=== PATIENT | male | born 1930 | race Caucasian/White ===

== ENCOUNTER 2019-07-02 16:47 | Inpatient (IN) | payer OTHER ==
[~2019-07-02] VITALS: Ht 172.7 cm; Wt 83.9 kg
[2019-07-02 16:56] VITALS: BP 161/104
[2019-07-02 17:29] LABS: ABSOLUTE EOSINOPHILS 0.2 thou/uL (0.0-0.7); ABSOLUTE MONOCYTES 0.8 thou/uL (0.0-1.2); ABSOLUTE NEUTROPHILS 4.3 thou/uL (1.6-8.1); BASOPHILS 0.6 %; EOSINOPHILS 2.9 %; HEMATOCRIT 42.3 % (42.0-52.0); HEMOGLOBIN 14.5 gm/dL (14.0-18.0); LYMPHOCYTES 27.1 %; MCH 31.5 pg (26.0-34.0); MCHC 34.2 g/dL (28.0-37.0); MCV 92.3 fL (80.0-100.0); MONOCYTES 11.1 %; MPV 7.6 fl. (7.2-11.1); NUCLEATED RBCS 0 /100WBC; PLATELET COUNT* 157 thou/uL (150-400); POLYS 58.3 %; RBC 4.58 mil/uL (4.50-6.00); RDW-CV 14.4 % (10.5-14.5); WBC 7.3 thou/uL (4.0-11.0)
[2019-07-02 17:32] LABS: PROTIME 10.6 Seconds (9.20-11.50)
[2019-07-02 17:33] LABS: URINE BLOOD TRACE (Negative); URINE CLARITY CLEAR; URINE COLOR DARK YELLOW; URINE GLUCOSE-RANDOM NEGATIVE (Negative); URINE KETONES TRACE (Negative); URINE LEUKOCYTES-REFLEX NEGATIVE (Negative); URINE NITRITE-REFLEX NEGATIVE (Negative); URINE PROTEIN TRACE (Negative); URINE SPECIFIC GRAVITY >= 1.030 (1.005-1.030); URINE UROBILINOGEN 0.2 E.U./dl (0.2-1.0)
[2019-07-02 17:33] LABS: ANION GAP 8 mmol/L (7-16); BUN 23 mg/dL (7-18); CALCIUM 9.1 mg/dL (8.5-10.1); CHLORIDE 104 mmol/L (98-107); CO2 25 mmol/L (21-32); CREATININE 2.2 mg/dL (0.6-1.3); GLUCOSE 112 mg/dL (70-99); POTASSIUM 4.3 mmol/L (3.5-5.1); SODIUM 137 mmol/L (136-145)
[2019-07-02 17:36] LABS: ICTOTEST (BILI CONFIRMATORY) Negative (Negative); URINE BILIRUBIN 1+ (Negative)
[2019-07-02 17:43] LABS: ALBUMIN 3.4 g/dL (3.4-5.0); ALKALINE PHOSPHATASE 64 U/L (46-116); LIPASE 212 U/L (73-393); NT-PRO BRAIN NAT PEPTIDE 73 pg/mL (<300); SGOT 21 U/L (15-37); SGPT 18 U/L (30-65); TOTAL BILIRUBIN 0.5 mg/dL (<0.1-1.0); TOTAL PROTEIN 7.3 g/dL (6.4-8.2); TROPONIN-I LEVEL <0.06 ng/mL (<0.06)
[2019-07-02 20:46] VITALS: BP 162/101
[2019-07-02 21:20] VITALS: BP 155/83
[2019-07-03] VITALS: BP 169/97
[2019-07-03 04:00] VITALS: BP 161/92
[2019-07-03 04:42] LABS: HEMATOCRIT 41.2 % (42.0-52.0); HEMOGLOBIN 13.8 gm/dL (14.0-18.0); MCH 31.2 pg (26.0-34.0); MCHC 33.5 g/dL (28.0-37.0); MCV 93.2 fL (80.0-100.0); MPV 7.6 fl. (7.2-11.1); RBC 4.42 mil/uL (4.50-6.00); RDW-CV 14.4 % (10.5-14.5); WBC 5.7 thou/uL (4.0-11.0)
[2019-07-03 05:00] LABS: ALBUMIN 2.9 g/dL (3.4-5.0); CALCIUM 8.3 mg/dL (8.5-10.1); CREATININE 1.7 mg/dL (0.6-1.3); POTASSIUM 3.9 mmol/L (3.5-5.1); TOTAL BILIRUBIN 0.8 mg/dL (<0.1-1.0); TOTAL PROTEIN 6.1 g/dL (6.4-8.2)
[2019-07-03 08:00] VITALS: BP 147/90
--- NOTE | 2019-07-03 08:21 | NUR ---
PT ADMITTED TO ROOM 218 DURING LEAD FRONT END DEVELOPER 07/02/19; VSS, A+O X3 WITH SOME CONFUSION, ROOM AIR, HIGH FALL RISK-BED ALARM ON. HE IS ABLE TO COMMUNICATE HIS NEEDS TO STAFF WITH MINOR DIFFICULTY; HE IS DYAF-RY-WMPFEKB AND CONFUSED AT TIMES. HE HAS DENIED THE NEED FOR PAIN MEDICATION UP TO O7OO TODAY. NEUROLOGY, PT, OT, ST CONSULTED.
[2019-07-03] MEDS ORDERED: NORVASC5 M1 PO (08:52)
[2019-07-03] MEDS ORDERED: BENAZEPRIL 10 M10 MG PO (08:53)
[2019-07-03] MEDS ORDERED: LIPITOR 20 MG T20 M1 PO (08:54)
[2019-07-03] MEDS ORDERED: SYNTHROID125 MC1 PO (08:54)
--- NOTE | 2019-07-03 09:47 | EKG ---
[place] [address] ELECTROCARDIOGRAM REPORT Name: HOOD SANDS Room: [address] ADM IN .R.#: [id number] Admission: 07/02/19 Attend Phys: Brea Cormier MD Discharge: Date of : [birth year] Report #: [id number] THIS REPORT FOR: //name// [facility] ED Test Date: 2019-07-02 Test Time: 17:06:12 Pat Name: HOOD SANDS Department: Room: [facility] Gender: M Searchlight Operator: EV : 1930 Requested By: Nader Washburn Order Number: [id number] MD: Mauri Oh Measurements Intervals Fine Rate: 69 P: 94 VT: 165 QRS: -11 QRSD: 96 T: 135 QT: 554 QTc: 594 Interpretive Statements Sinus rhythm Inferior infarct, 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
[2019-07-03] MEDS ORDERED: ASPIR 8181 MG PO (11:07)
[2019-07-03] MEDS ORDERED: COLACE100 MG PO (11:09)
[2019-07-03] MEDS ORDERED: LUMIGAN2.5 M1 OPHTHALMIC (11:09)
[2019-07-03 11:30] VITALS: BP 168/91
--- NOTE | 2019-07-03 11:32 | NUR ---
ASSUMED CARE OF PT AT 0730. PT RESTING IN BED. DAUGHTER AT BEDSIDE. PT A&0X2-3, FORGETFUL AND CONFUSED AT TIMES. PT TRACING SR ON THE ROCKET SCIENTIST. ON RA SAT UPPER 90'S. PT DENIES ANY PAIN OR SHORTNESS OF BREATH AT THIS TIME. IVF. PT UP WITH 1 ASSIST WALKER TO BATHROOM. HOME MEDICATIONS RECONCILED. PT GOAL FOR TODAY IS NEURO CONSULT, PT, OT AND ST EVAL AND TREAT AND RENAL ULTRASOUND. AM ASSESSMENT CHARTED. MEDICATIONS PER DEC. PT REPOSITIONS SELF WITH REMINDERS. HOURLY ROUNDING OBSERVED. BED IN LOW POSITION. CALL LIGHT WITHIN REACH. WILL CONTINUE PLAN OF CARE.
--- NOTE | 2019-07-03 16:02 | NUR ---
Pt is A&O. Resides at home with his , is currently out of town. Dtr in room at bedside. Pt is normally independent. Pt has a walker and cane at home, states that he rarely uses either, but uses the cane the most out of the two. Pt has a ton of family that assist him as needed. No hx of or SNF. Discussed possible need for some rehab prior to returning home, Pt and dtr voiced understanding. Therapies to eval. Following.
[2019-07-03 16:09] VITALS: BP 134/87
--- NOTE | 2019-07-03 16:52 | NUR ---
NEURO HERE TO SEE PT. ORDERS RECEIVED FOR MRI HEAD, MRI CAROTID AND MRI CRICLE OF [place]. REFER TO RESULTS. RESULTS CALLED TO DR VERDIN- ORDERS RECEIVED FOR PLAVIX 75 MG PO DAILY AND ASPIRIN 81 MG PO DAILY. PT ALSO HAD RENAL ULTRASOUND TODAY- REFER TO RESULTS. PT UP WITH 1 ASSIST TO BATHROOM- LEFT SIDED WEAKNESS NOTED AND LEFT FACIAL DROOP NOTED. 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 PT DENIES ANY PAIN OR SHROTNESS OF BREATH THROUGHOUT AFTERNOON. 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 PT WORKED WITH PT TODAY-TOLERATED WELL. MEDICATIONS PER DEC. PT REPOSITIONS SELF WITH REMINDERS. HOURLY ROUNDING OBSERVED. BED IN LOW POSITION. CALL LIGHT WITHIN REACH. WILL CONTINUE PLAN OF CARE.
[2019-07-03 20:44] VITALS: BP 143/88
[2019-07-04 00:35] VITALS: BP 174/98
[2019-07-04 03:36] VITALS: BP 158/102
[2019-07-04 04:00] VITALS: BP 137/98
--- NOTE | 2019-07-04 04:00 | NUR ---
PT DEVELOPED RIGHT NOSTRIL EPISTAXIS AT APPOXIMATELY 0300; ORIGIN IS NOT KNOWN, PT STATES THAT HE HAS NOSE BLEEDS FROM "TIME TO TIME". APPLIED PRESSURE AND USED ICE PACK TO TRY AND STOP BLEEDING BUT BLEEDING PERSISITED. PT SWALLOWING BLOOD AND NOT SPITTING IT OUT. GOT SUCTION IN THE ROOM TO HELP FACILITATE REMOVAL OF BLOOD FROM HIS MOUTH; TOLERATED WELL BY PT. PT DID VOMIT UP BLOOD AT JUST BEFORE 0400. CALLED MD AND RECEIVED ORDER TO HAVE ER MD PLACE A RHINO-ROCKET TO HELP STOP THE BLEEDING. CONTINUING TO KEEP PRESSURE AN ICE PACK ON HIS NOSE UNTIL MD CAN COME UP FROM ER. WILL PUT IN MORNING CBC RECHECK TO MAKE SURE HIS H/H HAS NOT DROPPED TOO MUCH.
[2019-07-04 05:16] LABS: HEMATOCRIT 40.6 % (42.0-52.0); HEMOGLOBIN 13.5 gm/dL (14.0-18.0); MCH 31.1 pg (26.0-34.0); MCHC 33.4 g/dL (28.0-37.0); MCV 93.3 fL (80.0-100.0); MPV 8.2 fl. (7.2-11.1); RBC 4.35 mil/uL (4.50-6.00); RDW-CV 14.2 % (10.5-14.5); WBC 7.3 thou/uL (4.0-11.0)
[2019-07-04 05:33] LABS: APTT 28.9 Seconds (25.0-31.3); PROTIME 10.7 Seconds (9.20-11.50)
[2019-07-04 05:37] LABS: CALCIUM 8.3 mg/dL (8.5-10.1); CREATININE 1.5 mg/dL (0.6-1.3); MAGNESIUM 1.8 mg/dL (1.8-2.4)
[2019-07-04 08:00] VITALS: BP 136/91
[2019-07-04 09:48] LABS: HEMATOCRIT 39.7 % (42.0-52.0); HEMOGLOBIN 13.3 gm/dL (14.0-18.0); MCH 31.4 pg (26.0-34.0); MCHC 33.6 g/dL (28.0-37.0); MCV 93.5 fL (80.0-100.0); MPV 7.8 fl. (7.2-11.1); RBC 4.25 mil/uL (4.50-6.00); RDW-CV 14.1 % (10.5-14.5); WBC 12.5 thou/uL (4.0-11.0)
[2019-07-04 10:16] LABS: CHOLESTEROL 178 mg/dL (<200); HDL CHOLESTEROL 35 mg/dL (>40); LDL CHOLESTEROL 123 mg/dL (<100); TC:HDL 5.1 Ratio (Not establshd); TRIGLYCERIDE 104 mg/dL (<150); VLDL 21 mg/dL (<40)
[2019-07-04 10:18] LABS: SERUM ASSESSMENT Clear
--- NOTE | 2019-07-04 10:20 | NUR ---
PT IS ABLE TO COMMUNICATE HIS NEEDS TO STAFF WITH SOME DIFFICULTY; HE IS FORGETFUL AND CONFUSED FREQUENTLY. HE HAS DENIED THE NEED FOR PAIN MEDICATION UP TILL 0700 TODAY. PT PULLED OUT RHINO-ROCKET AT AROUND O645; NOSE DID NOT RESUME BLEEDING AT THAT TIME. DAY SHIFT RN INFORMED OF THE NIGHT'S EVENTS AND TOLD TO WATCH HIM FOR BLEEDING.
--- NOTE | 2019-07-04 11:30 | NUR ---
ASSUMED CARE OF PATIENT THIS AM AT 0730. PATIENT IS ALERT AND ORIENTED X 1, CONFUSED AND IMPULSIVE. HE HAS BEEN FREQUENTLY TRYING TO GET OUT OF BED THIS AM. NO FURTHER EPITAXIS NOTED THIS AM. TELE SHOWS NSR. PATIENT TAKING PO MEDICATIONS WITHOUT DIFFICULTY. PATIENT REORIENTED TO PLACE AND TIME NEEDED. HE HAS BEEN ASSISTED WITH ADLS THROUGHOUT THE DAY. NO FALLS OR INJURY. KIM IS NOW AT THE BEDSIDE. WILL CONTINUE TO MONITOR.
[2019-07-04 11:43] VITALS: BP 137/79
--- NOTE | 2019-07-04 14:03 | 2DMMODE ---
[place] [address] 2 D/M-MODE ECHOCARDIOGRAM Name: HOOD SANDS Room: [address] IN R#: [id number] Admission: 07/02/19 Attend Phys: Brea Cormier, Discharge: Date of : [birth year] Date of Service: 07/04/19 1403 Report #: [id number] THIS REPORT FOR: //name// APPROVED REPORT Study performed: 07/04/2019 11:41:37 EXAM: Comprehensive 2D, Doppler, and color-flow Echocardiogram Patient Location: In-Patient Room #: 218 Status: routine BSA: 1.97 HR: 114 bpm BP: 136/91 mmHg Rhythm: NSR Other Information Study Quality: Fair Indications CVA/TIA Echo Enhancing Agent Indication: Rule out Shunt Agent(s) / Amount(s) Used: Agitated Saline 10 cc 2D Dimensions IVSd: 14.35 (7-11mm) LVOT Diam: 20.46 (18-24mm) LVDd: 40.22 mm PWd: 12.24 (7-11mm) Ascending Ao: 31.88 (22-36mm) LVDs: 29.96 (25-40mm) Aortic Root: 38.75 mm Volumes Left Atrial Volume (Systole) LA ESV Index: 21.70 mL/m2 Aortic Valve AoV Peak Angelo.: 1.43 m/s AO Peak Gr.: 8.18 mmHg LVOT Max P.76 mmHg AO Mean Gr.: 4.67 mmHg LVOT Mean P.47 mmHg LVOT Max V: 1.30 m/s AO V2 VTI: 16.85 cm LVOT Mean V: 0.69 m/s NAN (VTI): 2.93 cm2 LVOT V1 VTI: 15.03 [place] [address] 2 D/M-MODE ECHOCARDIOGRAM Name: HOOD SANDS Room: [address] IN .R.#: [id number] Admission: 07/02/19 Attend Phys: Brea Cormier, Discharge: Date of : [birth year] Date of Service: 07/04/19 1403 Report #: [id number] Mitral Valve E/A Ratio: 0.60 MV Decel. Time: 215.48 ms MV E Max Angelo.: 0.55 m/s MV PHT: 62.49 ms MVA (PHT): 3.52 cm2 TDI E/Lateral E': 6.11 E/Medial E': 6.88 Medial E' Angelo.: 0.08 m/s Lateral E' Angelo.: 0.09 m/s Pulmonary Valve PV Peak Angelo.: 0.99 m/s PV Peak Gr.: 3.92 mmHg Left Ventricle The left ventricle is normal size. There is normal LV segmental wall motion. Mild concentric left ventricular hypertrophy. Left ventricular systolic function is normal. The left ventricular ejection fraction is within the normal range. LVEF is 65-70%. Grade I - abnormal relaxation pattern. Right Ventricle The right ventricle is normal size. The right ventricular systolic function is normal. Atria The left atrium size is normal. Interatrial septum is intact without evidence of ASD or PFO. The right atrium size is normal. Aortic Valve Mild aortic valve sclerosis. No aortic regurgitation is present. There is no aortic valvular stenosis. Mitral Valve The mitral valve is normal in structure. There is no mitral valve regurgitation noted. No evidence of mitral valve stenosis. Tricuspid Valve The tricuspid valve is normal in structure. Unable to assess PA pressure. Trace tricuspid regurgitation. Pulmonic Valve Pulmonic valve is not well visualized. There is no pulmonic [place] [address] 2 D/M-MODE ECHOCARDIOGRAM Name: HOOD SANDS Room: [address] IN [facility]#: [id number] Admission: 07/02/19 Attend Phys: Brea Cormier, Discharge: Date of : [birth year] Date of Service: 07/04/19 1403 Report #: [id number] Great Vessels The aortic root is normal in size. The inferior vena cava is not well visualized. Pericardium There is no pericardial effusion. <Conclusion> Mild concentric left ventricular hypertrophy. LVEF is 65-70%. Mild aortic valve sclerosis. Interatrial septum is intact without evidence of ASD or PFO. <ELECTRONICALLY SIGNED> By: Mauri Oh MD, [facility] 07/04/19 1403 140 140 Mauri Oh MD, FACC /INF
[2019-07-04 16:45] VITALS: BP 110/75
[2019-07-04 17:24] LABS: HEMATOCRIT 36.8 % (42.0-52.0); HEMOGLOBIN 12.6 gm/dL (14.0-18.0); MCH 31.5 pg (26.0-34.0); MCHC 34.1 g/dL (28.0-37.0); MCV 92.3 fL (80.0-100.0); NUCLEATED RBCS 0 /100WBC; PLATELET COUNT* 170 thou/uL (150-400); RBC 3.98 mil/uL (4.50-6.00); RDW-CV 14.3 % (10.5-14.5)
[2019-07-04 18:08] LABS: ABSOLUTE LYMPHOCYTES 0.7 thou/uL (0.8-5.3); ABSOLUTE MONOCYTES 0.7 thou/uL (0.0-1.2); ABSOLUTE NEUTROPHILS 15.6 thou/uL (1.6-8.1); PLATELET ESTIMATE ADEQUATE
[2019-07-05] VITALS: BP 127/82
[2019-07-05 02:06] LABS: GLYCOHEMOGLOBIN (HGB A1C) 5.5 % (4.8-5.6)
[2019-07-05 04:00] VITALS: BP 132/75
[2019-07-05 05:07] LABS: HEMATOCRIT 33.6 % (42.0-52.0); HEMOGLOBIN 11.4 gm/dL (14.0-18.0); MCH 31.5 pg (26.0-34.0); MCHC 34.1 g/dL (28.0-37.0); MCV 92.3 fL (80.0-100.0); MPV 8.1 fl. (7.2-11.1); RBC 3.64 mil/uL (4.50-6.00); RDW-CV 14.4 % (10.5-14.5); WBC 12.1 thou/uL (4.0-11.0)
[2019-07-05 05:21] LABS: ALBUMIN 2.6 g/dL (3.4-5.0); CALCIUM 8.4 mg/dL (8.5-10.1); CREATININE 1.6 mg/dL (0.6-1.3); MAGNESIUM 1.8 mg/dL (1.8-2.4); POTASSIUM 3.9 mmol/L (3.5-5.1); TOTAL BILIRUBIN 0.9 mg/dL (<0.1-1.0); TOTAL PROTEIN 5.9 g/dL (6.4-8.2)
[2019-07-05 07:11] VITALS: BP 127/81
[2019-07-05 11:48] VITALS: BP 115/69
[2019-07-05 16:00] VITALS: BP 128/77
--- NOTE | 2019-07-05 16:32 | NUR ---
ASSESSMENT COMPLETE. PT ALERT AND ORIENTED TO SELF. PT HAS SLURRED SPEECH. LEFT SIDE IS FLACCID. FACIAL DROOP NOTED. PT HAS FAMILY AT BEDSIDE. WAITING FOR TO RETURN FROM VACATION TODAY OR TOMORROW TO HELP DETERMINE PLAN. NEURO ROUNDED AND UNDERSTANDS AND WILL RE-EVALUATE PLAN WITH HERE. GI CONSULT COMPLETED. SPEECH EVAL DONE TODAY AND THEY RECOMMEND MEDS WITH APPLESAUCE AND MECHANICAL GOUND DIET. PT IS NSR ON TELE MONITOR. PT IS ON ROOM AIR, VSS. Q2 TURN. ACCU CHECK. SEE ASSESSMENT AND VITALS FOR OTHER DETAILS. CALL LIGHT WITHIN REACH. WILL CONTINUE PLAN OF CARE
[2019-07-05 21:00] VITALS: BP 136/82
[2019-07-06] VITALS: BP 145/85
[2019-07-06 04:00] VITALS: BP 145/84
[2019-07-06 07:30] VITALS: BP 139/87
--- NOTE | 2019-07-06 07:34 | NUR ---
VSS. NIH=9. L sided hemiplegia. Takes meds well with applesauce. Turned q2h. Incontinent of urine. Will continue to monitor.
[2019-07-06 14:04] VITALS: BP 129/75
--- NOTE | 2019-07-06 17:41 | NUR ---
ASSESSMENT DOCUMENTED. MEDS GIVEN PER E-MAR WITH APPLESAUCE. FAMILY REMAINED AT BEDSIDE. IV PATENT, FLUIDS INFUSING. NO REPORTS OF PAIN THIS SHIFT. NIH DOCUMENTED. WILL CONTINUE WITH PLAN OF CARE.
[2019-07-06 18:36] VITALS: BP 159/91
[2019-07-06 19:35] VITALS: BP 145/92
[2019-07-07] VITALS (7 sets, daily range): BP systolic 126–150; BP diastolic 61–93
--- NOTE | 2019-07-07 04:48 | NUR ---
[facility] CARE OF PT AT 1900. PT IS ALERT AND ORIENTED. VSS. FLACID ON THE LEFT SIDE. PT IS IN SINUS RYTHM ON THE TELEMETRY. PT IS RESTING COMFORTABLY IN BED. RESPIRATIONS ARE EVEN AND NONLABORED. WILL CONTINUE TO MONITOR PT,
[2019-07-07 04:56] LABS: HEMATOCRIT 31.3 % (42.0-52.0); HEMOGLOBIN 10.7 gm/dL (14.0-18.0); MCH 31.9 pg (26.0-34.0); MCHC 34.1 g/dL (28.0-37.0); MCV 93.6 fL (80.0-100.0); MPV 8.1 fl. (7.2-11.1); RBC 3.34 mil/uL (4.50-6.00); RDW-CV 14.6 % (10.5-14.5); WBC 6.9 thou/uL (4.0-11.0)
[2019-07-07 05:05] LABS: CALCIUM 8.3 mg/dL (8.5-10.1); CREATININE 1.3 mg/dL (0.6-1.3); MAGNESIUM 1.6 mg/dL (1.8-2.4); POTASSIUM 3.5 mmol/L (3.5-5.1)
--- NOTE | 2019-07-07 10:47 | NUR ---
PT A/O. NIH 8 (NO CHANGE FROM PREVIOUS SHIFT). TELE TRACKING SR AND ALL VSS ON ROOM AIR. DENIES CP SOA. DAUGHTERS AT BEDSIDE THIS AM. PT AND FAMILY LOOKING FORWARD TO DC TO REHAB SOON. EDUCATED ON SAFETY AND PLAN OF CARE. PLEASE SEE ASSESSMENT FOR ADDITIONAL INFORMATION. WILL CONT TO MONITOR
--- NOTE | 2019-07-07 13:42 | NUR ---
Spoke with clinical rehab specialist, PT/OT are supposed to re-eval Pt since he extended. Continued to await insurance auth
[2019-07-08] VITALS: BP 140/98
--- NOTE | 2019-07-08 03:44 | NUR ---
ASSUMED CARE OF PT AT 1900. PT IS ALERT AND ORIENTED. VSS. PT NIH IS 8. PT IS ON ROOM AIR. NO COMPLAINTSOF PAIN. PT IS A Q2 TURN. PT IS SLEEPING QUIETLY IN BED. RESPIRATIONS ARE EVEN AND NONLABORED. WILL CONTINUE TO MONITOR PT.
[2019-07-08 04:00] VITALS: BP 135/91
[2019-07-08 07:23] VITALS: BP 147/87
--- NOTE | 2019-07-08 11:20 | NUR ---
Per rehabilitation engineer, continue to await insurance auth for acute rehab.
--- NOTE | 2019-07-08 13:24 | NUR ---
Insurance auth received for Pt to dc to acute rehab today, awaiting room assignment and dc time. Updated nurse and Pt's family in room
[2019-07-08 14:00] VITALS: BP 147/87
[2019-07-08] MEDS ORDERED: PLAVIX 75 MG TA75 M1 PO (14:41)
[2019-07-08] MEDS ORDERED: ENOXAPARIN30 MG/0.1 SUBQ (14:48)
--- NOTE | 2019-07-08 15:32 | NUR ---
ASSUMED PT CARE AT 0800. ASSESSMENT COMPLETED CHARTED. ABLE TO MAKE SOME NEEDS KNOWN. NIH 9. LEFT SIDE FLACID, RIGHT SIDE OF FACE IS DROOPING FROM BELLS PALSY. UP WITH MAX ASSIST TO CHAIR FOR LUNCH. NEEDS ASSIST EATING. FAMILY AT BEDSIDE. PT WAS DISCHARGED TO REHAB UPSTAIRS AT 1525. PAPERWORK WENT OVER WITH FAMILY AND PT. GAVE REPORT TO REHAB NURSE. PT FAMILY TOOK ALL BELONGINGS WITH THEM TO BRING UPSTAIRS.
== END 2019-07-08 15:45 | DRG 64 ==
LOC: M.ERS 16:47 → M.2W 18:27 → M.TBA-ER 18:27 → M.2W 21:00
PROVIDERS: Emergency Medicine; Family Medicine; ADMIT Internal Medicine
DX: I63.9 Cerebral infarction, unspecified (principal); N17.0 Acute kidney failure with tubular necrosis; K92.0 Hematemesis; G81.94 Hemiplegia, unspecified affecting left nondominant side; G51.0 Bell's palsy; N40.0 Benign prostatic hyperplasia without lower urinary tract symptoms; F03.90 Unspecified dementia, unspecified severity, without behavioral disturbance, psychotic disturbance, mood disturbance, and anxiety; I65.22 Occlusion and stenosis of left carotid artery; R04.0 Epistaxis; N28.1 Cyst of kidney, acquired; R47.1 Dysarthria and anarthria; I10 Essential (primary) hypertension

== ENCOUNTER 2019-07-08 14:02 | Inpatient (IN) | payer OTHER ==
[~2019-07-08] VITALS: Ht 175.3 cm; Wt 80.3 kg
[~2019-07-08 14:02] MED LIST: ASPIR 8181 MG PO; BENAZEPRIL 10 M10 MG PO; COLACE100 MG PO; LIPITOR 20 MG T20 M1 PO; LUMIGAN2.5 M1 OPHTHALMIC; NORVASC5 M1 PO; SYNTHROID125 MC1 PO
[2019-07-08] MEDS ORDERED: PLAVIX 75 MG TA75 M1 PO (14:41)
[2019-07-08] MEDS ORDERED: ENOXAPARIN30 MG/0.1 SUBQ (14:48)
[2019-07-08 16:12] VITALS: BP 109/80
--- NOTE | 2019-07-08 17:01 | NUR ---
PT ADMITTED TO 324 PER BED FROM TELE. PT ALERT AND ORIENTATED TO SELF AND ROOM AND CONTROLS. DAUGHTER NADEGE HERE TO ASSIST . PT HAS SLURRED SPEECH BUT ABLE TO MAKE NEEDS KNOWN. PT HAS FLACCID LT ARM AND LEG,RT.LEG WITH MILD MOVEMENT AND ABLE TO USE RT. ARM. SOFT TOUCH CALL LIGHT GIVEN TO PT AND CLIPPED TO GOWN. PT HAS HAD LARGE INC WITH BLADDER SCAN 50.PT HAS LARGE BRUSE TO LT HIP FROM FALL AT HOME.DAUGHTER STATES PT TALKS BETTER WITH TEETH IN WHICH ARE IN ROOM.FAMILY ORIENTATED TO REHAB.
[2019-07-08 19:45] VITALS: BP 133/84
--- NOTE | 2019-07-09 01:33 | NUR ---
ASSUMED CARE @ 1924-07/08-SUNDAY.AWAKE IN BED W/ HOB UP.LUE UP ON A PILLOW. EDEMA-LEFT FINGERS & LEFT HAND.FLACCID-LUE & LEFT LE.MILD SPEECH SLURRING. LEFT EYE PARTLY CLOSED.HAS MOIST,PROD.COUGH OCCASIONAL BUT SWALLOWS SPUTUM. AT 2300-AWAKE & INC.LARGE.LIQUID BM.STOOLS ON RIGHT HAND.PARTIAL BED BATH GIVEN & RIGHT HAND SOAKED.RIGHT FINGERNAILS CLEANED.COMPLETE BED LINENS CHANGED.ON HOURLY ROUNDS.SEE POSITION CHANGE CHARTING.
[2019-07-09 04:16] LABS: HEMATOCRIT 31.5 % (42.0-52.0); HEMOGLOBIN 10.8 gm/dL (14.0-18.0); MCHC 34.4 g/dL (28.0-37.0); MCV 92.9 fL (80.0-100.0); MPV 7.8 fl. (7.2-11.1); RBC 3.39 mil/uL (4.50-6.00); RDW-CV 14.6 % (10.5-14.5); WBC 7.9 thou/uL (4.0-11.0)
[2019-07-09 04:33] LABS: CALCIUM 8.4 mg/dL (8.5-10.1); CREATININE 1.4 mg/dL (0.6-1.3); POTASSIUM 3.2 mmol/L (3.5-5.1)
--- NOTE | 2019-07-09 05:43 | NUR ---
PHOTO TAKEN-PINK AREA COCCYX CLEFT @ 0225.ORAL SWABS GIVEN W/ ICE H20 X4.TOOK 4 SIPS ORANGE JUICE & 2 SIPS ICE H20 @ 0400.SEE PAIN MANAGEMENT @ 0450. LAST VOID PER PATIENT @ 2300 W/ INC LARGE BM.BLADDER SCAN @ 0500-558 ML. RUNNING H20 & COLD COMPRESS ON BLADDER AREA APPLIED TO STIMULATE VOIDING @ 0510.URINAL PLACED BETWEEN THIGHS.REFUSED HS SNACKS.SLEEPING EARLY SINCE 2029. AWAKE @ 2300,0400 & 0500.INC URINE X1.INC STOOLS X2.BOWEL ACCIDENTS X2.
--- NOTE | 2019-07-09 06:52 | NUR ---
unable to void @ 0630.DR MACK CALLED & GOT ORDER TO ST.CATH Q 6 HOURS IF UNABLE TO VOID & IF BLADDER SCAN ABOVE [address].CATH @ 0645 & OBTAINED 225 ML URINE.
[2019-07-09 07:55] VITALS: BP 149/84
--- NOTE | 2019-07-09 09:31 | NUR ---
Nutrition: Pt admitted to rehab with Lt weakness. ALCIEDS is resolved. H/o [place] Palsy, BPH. Alb 2.6, prealb 14.4. Wt stable at 182#. +BM. Soft/fiber restricted diet. Low risk.
[2019-07-09 14:22] LABS: CALCIUM 9.1 mg/dL (8.5-10.1); CREATININE 1.8 mg/dL (0.6-1.3); MAGNESIUM 1.9 mg/dL (1.8-2.4); POTASSIUM 3.3 mmol/L (3.5-5.1)
--- NOTE | 2019-07-09 16:25 | NUR ---
SW and Dr Read met with pt to review team conference summary and plan for pt to remain on rehab unit at least another week with plan for team to reassess pt length of stay during team conference next Monday 07/16. Pt okay with plan and was able to communicate understanding of continuing to work with therapies. Initial assessment for inpt rehab: Pt lives at home with and family support. Pt was previously independent and drove. Pt has RW, cane and no hx of HH or SNF. SW to continue to follow to assist with safe dc planning.
[2019-07-09 19:40] VITALS: BP 128/72
--- NOTE | 2019-07-09 19:40 | NUR ---
ASSISTED WITH PLACING URINAL. UNABLE TO VOID. HAD A BOWEL SMEAR. BRYON CARE GIVEN. REPLACED LOW POTASSIUM WITH ELECTROLYTE PROTOCOL. HAS LABS ORDERED FOR THE MORNING. TOOK POTASSIUM PILLS CUT IN HALF WITH APPLESAUCE FOLLOWED WITH SIPS OF NECTAR THICKENED APPLE JUICE. LEFT SIDE FLACCID. PLACE PILLOW UNDER LEFT ARM AND REPOSITION PATIENT WITH ASSIST OF 2 TO THE LEFT SIDE. SOFT CALL LIGHT ATTACHED TO T-SHIRT. BEDRAILS UP X 4 AND BED ALARM ON FOR PATIENT'S SAFETY.
[2019-07-09 23:54] LABS: URINE BILIRUBIN NEGATIVE (Negative); URINE BLOOD 2+ (Negative); URINE CLARITY CLEAR; URINE COLOR DARK YELLOW; URINE GLUCOSE-RANDOM NEGATIVE (Negative); URINE KETONES TRACE (Negative); URINE LEUKOCYTES-REFLEX TRACE (Negative); URINE NITRITE-REFLEX NEGATIVE (Negative); URINE PROTEIN TRACE (Negative)
[2019-07-10 00:08] LABS: SQUAMOUS 0-3 Few /LPF (0-3); TRANSITIONAL EPITHEL CELL 0-3 Few /LPF (None Seen); WBC CLUMPS Few (None Seen)
[2019-07-10 00:09] LABS: BACTERIA-REFLEX >30 Many /HPF (None Seen); CRYSTALS None Seen /LPF (None Seen); FINE GRANULAR CASTS 0-3 Few /LPF (None Seen); HYALINE CASTS 0-3 Few /LPF (None Seen); MUCUS 4-6 Moderate strn/LPF (None Seen)
[2019-07-10 04:10] LABS: HEMATOCRIT 31.4 % (42.0-52.0); HEMOGLOBIN 10.7 gm/dL (14.0-18.0); MCHC 34.1 g/dL (28.0-37.0); MCV 94.1 fL (80.0-100.0); MPV 7.9 fl. (7.2-11.1); RBC 3.34 mil/uL (4.50-6.00); WBC 7.3 thou/uL (4.0-11.0)
[2019-07-10 04:27] LABS: CALCIUM 8.5 mg/dL (8.5-10.1); CREATININE 1.6 mg/dL (0.6-1.3); POTASSIUM 3.7 mmol/L (3.5-5.1)
--- NOTE | 2019-07-10 05:59 | NUR ---
VOIDED ON BEDPAN DURING THE NIGHT. VOIDED PER URINAL THIS MORNING BUT BLADDER SCAN SHOWED 367ML RESIDUAL. STRAIGHT CATH DONE AT 0530 AND 250 ML JOANIE URINE OBTAINED. INCONTINENT THIS MORNING OF BLACK LIQUID STOOL. BRYON CARE GIVEN. ASSISTED WITH REPOSITIONING THROUGHOUT THE NIGHT. HOURLY ROUNDING IN PROGRESS.
[2019-07-10 07:40] VITALS: BP 140/87
--- NOTE | 2019-07-10 17:48 | NUR ---
NURSE CALLED INTO ROOM BY THERAPY. PER TRACEY PT HAD CHANGE IN STATUS. UPON ENTERING ROOM, PT IN WHEELCHAIR AND ABLE TO ANSWER QUESTIONS. PER THERAPY PATIENT "BLACKED OUT" AND WAS NOT TALKING. PT ABLE TO ANSWER QUESTIONS AND HOLD CONVERSATION. PT ASSISTED TO BED. ATTEMPTED NIH. PT ABLE TO STATE YEAR, MONTH AND AGE. PT ABLE TO RAISE RIGHT ARM WITH NO DRIFT. ATTEMPTED NIH, HOWEVER, PT HAS RESIDUAL LEFT SIDED WEAKNESS FROM PREVIOUS STROKE. VSS. SYSTOLIC BP 110. TEMP 97.7. OXYGEN >94%. BLOOD GLUCOSE 140. PT TALKING. PT STATES HE DOES NOT RECALL BLACKING OUT. DR MCLEAN. WILL CONTINUE TO MONITOR.
[2019-07-10 20:00] VITALS: BP 121/85
[2019-07-11 04:09] LABS: HEMATOCRIT 30.4 % (42.0-52.0); HEMOGLOBIN 10.6 gm/dL (14.0-18.0); MCH 32.4 pg (26.0-34.0); MCHC 34.9 g/dL (28.0-37.0); MCV 92.9 fL (80.0-100.0); MPV 7.7 fl. (7.2-11.1); RBC 3.27 mil/uL (4.50-6.00); RDW-CV 14.8 % (10.5-14.5); WBC 5.1 thou/uL (4.0-11.0)
[2019-07-11 04:16] LABS: CREATININE 1.6 mg/dL (0.6-1.3); POTASSIUM 3.1 mmol/L (3.5-5.1)
--- NOTE | 2019-07-11 05:12 | NUR ---
ASSUMED PT CARE AT 1930. PT ALERT AND ORIENTED, POLITE AND COOPERATIVE WITH CARES. PT INCONTINENT X1. BRYON CARE GIVEN. NO STOOL THIS SHIFT. LEFT SIDE FLACCID. 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 PT REPOSITIONED Q2 WITH PILLOW UNDER LEFT ARM. TAKES PILLS WITH APPLESAUCE. ON NECTAR THICK LIQUIDS. LARGE BRUISE ON LEFT HIP. PT USES CALL LIGHT APPROPRIATELY. CALL LIGHT AND FREQUENTLY USED ITEMS IN REACH. HOURLY ROUNDING IN PROGRESS, WILL CONTINUE TO MONITOR.
[2019-07-11 08:58] VITALS: BP 93/67
--- NOTE | 2019-07-11 18:06 | NUR ---
AM ASSESSMENT AND VITAL SIGNS COMPLETED DOCUMENTED. PT IS PLEASANT AND COOPERATIVE, MOTIVATED TO MAKE PROGRESS. LEFT HIP XRAY DONE SECONDARY TO C/O PAIN, NO FRACTURE PRESENT. PT IS MAX ASSIST WITH TRANSFERS AND BED MOBILITY. PT IS ALSO INCONTINENT OF BOWEL AND BLADDER. POTASSIUM REPLACEMENT PER PROTOCOL. FALL PRECAUTIONS AND HOURLY ROUNDING CONTINUE.
[2019-07-11 20:00] VITALS: BP 125/69
--- NOTE | 2019-07-11 21:11 | NUR ---
INITAL ASSESMENT COMPLETED AT 1999. PT PLEASANT AND COOPERATIVE, DENIED PAIN OR DISCOMFORT AT THAT TIME. HS MEDS DISPENSED ORDERED PER EMAR. CALL LIGHT IN REACH, PT DEMONSTRATES PROPER USE.
[2019-07-12 08:00] VITALS: BP 145/101
--- NOTE | 2019-07-12 15:50 | NUR ---
ASSUMED CARE AT 0730. ALERT ORIENTED PLEASANT COOPERATIVE. HX OF CVA L SIDE WEAKNESS. TRANSFERS WITH 1 ASSIST G BELT SLIDING BOARD FROM BED TO W/C FOR BREAKFAST. LEANS HEAVILY TO L SIDE DUE TO CVA. L ARM IN ARM TRAY ON W/C. DENIES PAIN DID C/O TIREDNESS AFTER BEING UP IN W/C BUT COMPLETED ALL THERAPIES THEN RESTED IN BED. TURNED REPOSITIONED ON LEFT SIDE. HAS HAD SEVERAL VISITORS TODAY. FEEDS SELF WITH SET UP DENTURES. ON NECTAR LIQUIDS AND MECHANICAL ALTERED CHOPPED DIET MEDS WHOLE IN APPLESAUCE. USES CALL LIGHT APPROPRIATELY FOR ASSIST. VOIDED PER URINAL X 1 STAFF EMPTIED.
[2019-07-12 18:45] VITALS: BP 89/60
[2019-07-12 19:51] VITALS: BP 131/79
--- NOTE | 2019-07-13 00:45 | NUR ---
ASSUMED CARE @ 1929-07/12-SAT.APPEARS SLEEPING IN BED W/ HOB FLAT.PUT HOB UP @ 1929.BED ALARM PUT ON ALSO @ 1929.LUE UP ON A PILLOW W/ HEELS OFF BED @ 1929.LAST VOIDING PER PATIENT WAS 1200 NOON.BLADDER SCAN @ 2000-214 ML.EDEMA- LEFT HAND & LEFT FINGERS.AT 2200--WANTS TO VOID.URINAL PLACED X 15 MINUTES.BUT NO VOID.FEELS DISCOMFORT.BLADDER SCAN @ 2199-198 ML.TOOK 120 ML NECTAR THICK APPLE JUICE @ 2214.HAS BEEN 10 HOURS W/OUT VOID SO-STRAIGHT CATH @ 2249 & OBTAINED 250 ML URINE.BP @ 0800-145/101.RE-CHECKED @ 1845-89/60.BP @ 1950- 131/79.ON HOURLY ROUNDS.DOCUMENTATION WRITER DOING ODD HOUR ROUNDS.
--- NOTE | 2019-07-13 05:18 | NUR ---
SLEEPING SINCE 1930.AWAKE @ 1999,2199 & 0200-07/13-SUNDAY.REFUSED HS SNACK. DRANK ALL 1/2 LEFT OF NECTAR THICK APPLE JUICE @ 0200.AT 0430-VOIDED 100 ML PER URINAL.BLADDER SCAN FOR PVR-133 ML.PHOTO OF COCCYX TAKEN @ 444.
[2019-07-13 08:12] VITALS: BP 171/94
--- NOTE | 2019-07-13 16:35 | NUR ---
ASSUMED CARE AT 0730. ALERT ORIENTED PLEASANT COOPERATIVE. HX OF CVA L SIDE FLACCID WEAK UPPER LOWER EXTREMITY. TRANSFERS WITH 2 ASSIST G BELT FROM BED TO W/C. L ARM IN ARM TRAY ON W/C. FEEDS SELF WITH SET UP APPETITE FAIRLY GOOD. TAKES MEDS WHOLE ONE AT A TIME IN APPLESAUCE. ON NECTAR LIQUIDS AND MECHANICALLY ALTERED CHOPPED DIET. HAS BEEN UP IN W/C AND RECLINER FOR A GOOD PART OF THE DAY. HAS HAD MANY VISITORS ALSO. TURNED AND REPOSITIONED IN BED. NO SPONTANEOUS VOIDS BLADDER SCAN WAS > 300 BUT CATH WAS 200CCS JOANIE URINE. PT. DID STATE URGE TO VOID BUT COULDNT PER URINAL SOME DISCOMFORT STATED BLADDER REGION PER PT.
[2019-07-13 17:08] VITALS: BP 138/88
--- NOTE | 2019-07-13 17:11 | NUR ---
PT. WANTS TO REST FOR 1 HR. HE HAS HAD MANY VISITORS TODAY, NITHYAWNICHOLAS SPEECH IS SLURRED BUT UNDERSTANDABLE RESTING RT. SIDE.
[2019-07-13 19:00] VITALS: BP 145/80
--- NOTE | 2019-07-14 00:43 | NUR ---
ASSUMED CARE @ 1922-07/13-SUN.AWAKE IN BED W/ HOB UP.HEELS OFF BED @ 1922.BED ALARM PUT ON @ 1922.DENTURES CLEANED & SOAKED @ 1924 W/ EFFERDENT TAB.DR. MACK CAME @ 2099 & GAVE VERBAL ORDER TO ST.CATH Q 4 HOURS IF BLADDER SCAN ABOVE 250 ML.BLADDER SCAN @ 2119-374 ML.STRAIGHT CATH @ 2124 & OBTAINED 150 ML URINE.BRYON CARE DONE.CALLED @ -SUNDAY & WANTS TO GET UP.INFORMED OF TIME.ON HOURLY ROUNDS.SHOWCASE MAKER DOING ODD HOUR ROUNDS.
--- NOTE | 2019-07-14 05:46 | NUR ---
AWAKE MOST OF TIME DURING NIGHT.USED SERVICE SPECIALIST @ 0200,0330 & 0530 TO CALL NURSE.WANTS TO GET UP @ THESE TIMES TO GO TO THERAPHY.RE-ORIENTED TO TIMES. SLEEPING SINCE 2200.TOOK ALL NECTAR THICK APPLE JUICE HS SNACK.ORAL SWABS X3 GIVEN.MOISTURE BARRIER CREAM APPLIED TO PINK GROINS & COCCYX CLEFT X1. BLADDER SCAN @ 0200-76 ML ONLY.VOIDED 50 ML PER URINAL @ 0330 W/ SPILL. BRYON CARE DONE.
--- NOTE | 2019-07-14 06:44 | NUR ---
BLADDER SCAN @ 0630-288 ML.STRAIGHT CATH @ 0635 & OBTAINED 175 ML URINE. TOLERATED PROCEDURE WELL.BRYON CARE DONE @ 0640.
[2019-07-14 08:18] VITALS: BP 145/91
--- NOTE | 2019-07-14 19:36 | NUR ---
PT. HASNT VOIDED THIS SHIFT BLADDER SCAN AT 1150 WAS 62CCS. DENIES DISCOMFORT PO INTAKE IS POOR THICKENED LIQUIDS. BLADDER SCAN AT 1700 WAS 237CC. NO VOIDS YET. RESTED IN BED AFTER BETWEEN THERAPIES.
--- NOTE | 2019-07-14 20:01 | NUR ---
FOUND INCONTINENT OF URINE INTO BRIEF. UNDETERMINED AMOUNT. BLADDER SCANNED THREE TIMES WITH 0 ML RESIDUAL. SKIN CARE DONE, MOISTURE BARRIER APPLIED.
[2019-07-14 20:22] VITALS: BP 117/71
--- NOTE | 2019-07-14 23:09 | NUR ---
ASSUMED CARE AT 1930. SEE PRIOR NOTE ABOUT INCONTINENCE AND BLADDER SCANNING THEN. NO PILLS TO TAKE, ONLY EYE GTT AND LOVENOX WITH HS MEDS. TURNING Q2H, POSITIONED WITH PILLOWS, BUT PATIENT TURNS HIMSELF OFF OF IT OFTEN. FOUND WITH HOB VERY ELEVATED, C/O NEEDING TO VOID. ATTEMPTED URINAL. UNABLE TO VOID. BLADDER SCANNED SHOWED 213 ML. RETURNED TO HAVING HOB LOWERED AND HE IS ATTEMPTING SLEEP. PATIENT ABLE TO USE CALL LITE AND THIS NURSE OBSERVED HIM USING IT ONCE WITH THE CORDED CALL LITE AND ANOTHER TIME TO THE ONE ATTACHED TO THE RAIL. SKIN CARE DONE TO COCCYX AREA, MOISTURE BARRIER APPLIED. LT ARM ON PILLOW. HOURLY ROUNDS CONTINUE. BED ALARM ON. CALL LITE IN REACH.
--- NOTE | 2019-07-15 05:28 | NUR ---
SLEPT OFF AND ON THROUGH THE NIGHT. TURNS SELF IN BED. NO C/O PAIN. DID C/O THAT HE COULDN'T VOID. ATTEMPTED URINAL WITHOUT SUCCESS. BLADDER SCANNED AT 0500, GOT 543 ML. STRAIGHT CATH DONE WITH STERILE TECHNIQUE. OBTAINED 300 ML OF CONCENTRATED, BLOOD TINGED URINE, SOME BROWN SEDIMENT NOTED. TOLERATED WELL. HOURLY ROUNDS CONTINUE. BED ALARM ON. CALL LITE IN REACH, AND PATIENT USES THE CALL LITE WELL.
[2019-07-15 08:20] VITALS: BP 93/54
--- NOTE | 2019-07-15 18:47 | NUR ---
1800 BLADDER SCAN SHOWED 137ML, NO STRAIGHT CATH NEEDED.
[2019-07-15 19:30] VITALS: BP 105/72
--- NOTE | 2019-07-15 19:55 | NUR ---
SITTING UP IN BED. ASSISTED WITH SETTING TV ON CHANNEL WITH [employer] Parking[employer]ALL GAME. DENIES DISCOMFORT. CALL LIGHT AND TV REMOTE WITHIN REACH. TOOK MEDICATION WHOLE WITH APPLESAUCE FOLLOWED WITH NECTAR THICKENED APPLE JUICE.
--- NOTE | 2019-07-16 05:25 | NUR ---
RESTED ON/OFF. PAIN MED GIVEN FOR COMPLAINT OF HEADACHE WITH RELIEF. HOURLY ROUNDING IN PROGRESS.
[2019-07-16 07:55] VITALS: BP 96/60
[2019-07-16 13:26] LABS: ABSOLUTE EOSINOPHILS 0.1 thou/uL (0.0-0.7); ABSOLUTE LYMPHOCYTES 0.9 thou/uL (0.8-5.3); ABSOLUTE MONOCYTES 0.4 thou/uL (0.0-1.2); ABSOLUTE NEUTROPHILS 5.5 thou/uL (1.6-8.1); BASOPHILS 0.5 %; EOSINOPHILS 1.7 %; HEMATOCRIT 36.6 % (42.0-52.0); HEMOGLOBIN 12.2 gm/dL (14.0-18.0); LYMPHOCYTES 13.3 %; MCH 31.7 pg (26.0-34.0); MCHC 33.4 g/dL (28.0-37.0); MCV 94.8 fL (80.0-100.0); MONOCYTES 5.2 %; MPV 7.5 fl. (7.2-11.1); NUCLEATED RBCS 0 /100WBC; PLATELET COUNT* 364 thou/uL (150-400); POLYS 79.3 %; RBC 3.86 mil/uL (4.50-6.00)
[2019-07-16 13:30] LABS: CALCIUM 9.5 mg/dL (8.5-10.1); CREATININE 2.3 mg/dL (0.6-1.3); POTASSIUM 4.2 mmol/L (3.5-5.1)
--- NOTE | 2019-07-16 13:54 | NUR ---
NUtrition f/u: no wt since admit. Intake avg 50%, prior nsg note of poor intake. Will add Maigc Cup daily. RD will continue to follow weekly; need current wt.
--- NOTE | 2019-07-16 16:34 | NUR ---
NERISSA and Dr Read met with pt to review team conference summary and plan for pt to remain on rehab unit to continue therapies and team will reassess pt length of stay during team conference next Monday 07/23. Pt in agreement with plan. SW to continue to follow to assist with safe dc planning.
--- NOTE | 2019-07-16 18:42 | NUR ---
AM ASSESSMENT AND VITAL SIGNS COMPLETED DOCUMENTED. PT PARTICIPATED WITH ALL THERAPIES. SPEECH THERAPIST CHANGED LIQUIDS TO HONEY CONSISTENCY, PT NEEDS TO DRINK A LOT MORE. PT WAS INCONTINENT OF URINE ONE TIME AND WAS STRAIGHT CATHED ONCE FOR 150 ML. PRE CATH SCAN SHOWED 343. FALL PRECAUTIONS AND HOURLY ROUNDING CONTINUE.
[2019-07-16 20:00] VITALS: BP 128/72
--- NOTE | 2019-07-16 22:53 | NUR ---
ASSUMED CARE AT 1930. PATIENT RESTING IN BED. CHANGES POSITIONS IN BED. LT ARM FLACCID, LT LEG MOVES SOME. NOT MANY "SPASMS" NOTED COMPARED TO SUNDAY NIGHT. HAS NOT VOIDED, NOR HAS HE C/O FEELING LIKE HE HAS TO. OFFERED PAIN MEDS, HE DECLINED. OTHERWISE HAS NO HS PILLS. DRANK 4 OZ HONEY THICKENED APPLE JUICE WITHOUT PROBLEM. MOISTURE BARRIER TO BUTTOCKS. HOURLY ROUNDS CONTINUE. BED ALARM ON. CALL LITE IN REACH.
--- NOTE | 2019-07-17 01:45 | NUR ---
AWAKE. HAD SMALL INCONTINENT BM, SKIN CARE DONE. MOISTURE BARRIER APPLIED. BLADDER SCANNED, ONLY 278 OBTAINED PER SCANNER. 4 MORE OZ OF HONEY THICKENED APPLE JUICE CONSUMED. TURNED TO SIDE, LT ARM UP ON PILLOW. NO C/O PAIN. USING MANUAL POLANCO, HAVING PROBLEMS USING CALL LITE AT THIS TIME. HOURLY ROUNDS CONTINUE. BED ALARM ON. CALL LITE IN REACH.
--- NOTE | 2019-07-17 05:12 | NUR ---
SLEPT MOST OF THE SHIFT. USES MANUAL POLANCO AT TIMES. UNABLE TO VOID EARLIER PER URINAL. REFUSED THIRD OFFER OF HONEY THICK LIQUIDS (APPLE JUICE) BUT DID TAKE TWO THROUGH SHIFT. ASSISTED WITH TURNS. LT ARM ON PILLOW. HEELS OFF BED. NO C/O PAIN. HOURLY ROUNDS CONTINUE. BED ALARM ON. CALL LITE AND MANUAL POLANCO IN REACH.
--- NOTE | 2019-07-17 05:49 | NUR ---
STRAIGHT CATHED, HAD NOT VOIDED AND STILL UNABLE TO. 483 ML SCANNED, OBTAINED 200 ML OF JOANIE URINE, NO SEDIMENT NOTED. TOLERATED WELL. NO C/O PAIN.
[2019-07-17 08:00] VITALS: BP 125/70
[2019-07-17 19:39] LABS: URINE BILIRUBIN NEGATIVE (Negative); URINE BLOOD 1+ (Negative); URINE CLARITY CLEAR; URINE COLOR YELLOW; URINE GLUCOSE-RANDOM NEGATIVE (Negative); URINE KETONES NEGATIVE (Negative); URINE LEUKOCYTES NEGATIVE (Negative); URINE NITRITE NEGATIVE (Negative); URINE PROTEIN TRACE (Negative); URINE SPECIFIC GRAVITY >= 1.030 (1.005-1.030); URINE UROBILINOGEN 0.2 E.U./dl (0.2-1.0)
[2019-07-17 19:51] LABS: BACTERIA 1-9 Few /HPF (None Seen); CASTS None Seen /LPF (None Seen); CRYSTALS None Seen /LPF (None Seen); MUCUS 0-3 Light strn/LPF (None Seen); SQUAMOUS 0-3 Few /LPF (0-3); URINE RBC 0-2 Rare /HPF (0-2); URINE WBC 0-5 Rare /HPF (0-5)
[2019-07-17 20:14] VITALS: BP 104/64
--- NOTE | 2019-07-18 05:41 | NUR ---
ASSUMED CARES AT 1920. ALERT AND ORIENTED. CVA WITH LEFT HEMIPARESIS. TAKES PILLS WHOLE IN APPLESAUCE WITH HONEY THICK LIQUIDS. ENCOURAGED FLUIDS. MAX ASSIST X 2 PERSON GAIT BELT. STAND AND PIVOT. STILL VERY WEAK WITH TRANSFERS. WEARS PULLUPS. HAD STOOL ACCIDENTS THROUGHOUT THE NIGHT. NURSING DID ALL CARES. PT DID NOT VOID. ONLY REQUIRED TO BE STRAIGHT CATHED X 1 AND HAD 250 CC OUTPUT. THIS AM, PT C/O LEFT SHOULDER PAIN. TYLENOL WAS GIVEN. SLEPT SOME. CALL LIGHT IN REACH. BED ALARM ON.
[2019-07-18 08:14] VITALS: BP 137/68
[2019-07-18 16:28] LABS: CALCIUM 9.1 mg/dL (8.5-10.1); CREATININE 1.9 mg/dL (0.6-1.3); POTASSIUM 3.8 mmol/L (3.5-5.1)
--- NOTE | 2019-07-18 19:11 | NUR ---
PATIENT AWAKE IN BED. ALL SAFETY MEASURES MAINTAINED. DISCUSSED OUTPUT AND INTAKE WITH DR. ROACH AND STUDENTS. IV FLUIDS INFUSING PER MAR. ENCOURAGED PO INTAKE PER DIET ORDERS THROUGHOUT SHIFT. PATIENT DENIES FURTHER NEEDS AT THIS TIME.
[2019-07-18 20:00] VITALS: BP 101/59
--- NOTE | 2019-07-19 07:35 | NUR ---
ASSUMED CARES AT 1920. ALERT AND ORIENTED. PLEASANT. DENIED ANY NEED FOR PAIN MEDS. IV INITIALLY STARTED TO RIGHT AC BUT KEPT KINKING WHEN PT FLEXED ARM DURING THE NIGHT AND SO ANOTHER IV WAS STARTED. IV NS NOW RUNNING AT 100 CC/HR TO RIGHT HAND. PT DID HAVE STOOL INCONTINENCE. BARRIER CREAM APPLIED TO COCCYX. PT ABLE TO VOID INTO URINAL X 2. NO STRAIGHT CATHS NEEDED THIS SHIFT. TURN ONTO SIDE DURING THE NIGHT. CALL LIGHT IN REACH AND BED ALARM ON.
[2019-07-19 08:00] VITALS: BP 139/88
[2019-07-19 10:15] LABS: CALCIUM 8.7 mg/dL (8.5-10.1); CREATININE 1.7 mg/dL (0.6-1.3); POTASSIUM 3.5 mmol/L (3.5-5.1)
--- NOTE | 2019-07-19 17:16 | NUR ---
AM ASSESSMENT AND VITAL SIGNS AND COMPLETED DOCUMENTED. PT HAS BEEN A/O THIS SHIFT, SPEECH HAS BEEN LESS DIFFICULT TO UNDERSTAND. PT HAS BEEN VOIDING, USING A URINAL WITH NO STRAIGHT CATH'S NEEDED. IV FLUID WILL BE DC'D AT THE COMPLETION OF THIS LITER. FALL PRECAUTIONS AND HOURLY ROUNDING CONTINUE.
[2019-07-19 19:25] VITALS: BP 102/66
--- NOTE | 2019-07-19 19:25 | NUR ---
RESTING QUIETY. BED IN CHAIR POSITION. IV FLUIDS INFUSING. TOOK MEDICATIONS WHOLE WITH APPLESAUCE FOLLOWED WITH HONEY THICKENED APPLE JUICE. TYLENOL GIVEN FOR COMPLAIN OF GENERALIZED ABD DISCOMFORT. CALL LIGHT WITHIN REACH.
[2019-07-20 04:31] LABS: CALCIUM 8.3 mg/dL (8.5-10.1); CREATININE 1.4 mg/dL (0.6-1.3)
--- NOTE | 2019-07-20 05:05 | NUR ---
NO FURTHER COMPLAINT OF PAIN. RESTED POORLY. KEEPS TAKING OFF HIS GOWN. INCONTINENT X 5 THUS FAR. REQUIRED A TOTAL BED CHANGE X ONE DUE TO INCONTIENCE. THE ONE TIME HE ATTEMPTED TO USE THE URINAL A LARGE AMOUNT OF URINE WAS FOUND ON THE FLOOR. A FEW TIMES FOUND PILLOWS ON THE FLOOR. HOURLY ROUNDING IN PROGRESS.
[2019-07-20 07:50] VITALS: BP 122/66
[2019-07-20 20:00] VITALS: BP 138/79
--- NOTE | 2019-07-21 06:28 | NUR ---
PATIENT SLEPT WELL DURING THIS SHIFT. PT UNABLE TO USE CALL LIGHT BUT CALLS OUT FOR ASSISTANCE. PT USES URINAL AT TIMES TO VOID AND ALSO IS INCONTINENT OF URINE. PT TURNED Q2H PER PROTOCAL AND IS NOT ABLE TO ASSIST WITH TURNS. PT'S LINENS CHANGED DURING THIS SHIFT. FREQUENTLY USED ITEMS AND CALL LIGHT WITHIN REACH. SIDERAILS UPX3 AND BED ALARM ON. WILL CONTINUE TO MONITOR.
[2019-07-21 08:00] VITALS: BP 95/67
--- NOTE | 2019-07-21 14:04 | NUR ---
ASSUMED CARE AT 0730. ALERT ORIENTED PLEASANT COOPERATIVE. HX OF CVA L SIDE WEAKNESS.TRANSFERS WITH 2 PERSON ASSISTANCE G BELT FROM W/C TO STAND AND ALSO TO GET FROM RECLINER TO W/C. WEARING SLING L ARM FLACCID. PARTICIPATING IN THERAPIES. FEEDS SELF WITH SET UP MECHANICAL ALTERED WITH HONEY LIQUIDS. TAKES MEDS WITH APPLESAUCE WHOLE 1 AT A TIME WITHOUT DIFFICULTY. DOES COUGH AT TIMES WITH THICKENED LIQUIDS. PTS. SON AND FEMALE VISITOR HERE AT NOON TIME. POSITIONED RT. SIDE IN BED AFTER THERAPIES COMPLETED.
[2019-07-21 16:15] VITALS: BP 121/75
--- NOTE | 2019-07-21 18:53 | NUR ---
PT. HAS DRANK HONEY THICK LIQUIDS.WHEN ENCOURAGED TO BUT APPETITE FAIR TO GOOD VOIDED 300CCS CLOUDY JOANIE URINE PER URINAL AT 0800. BLADDER SCAN AT 1655 WAS 379CCS NO DISCOMFORT VOICED. URINAL PLACED X 2. NO FURTHER VOIDS HAD MOD SOFT BM IN PULLUPS AND ALSO LOOSE BM ON INCONTINENT PAD MOISTURE BARRIER APPLIED TO BUTTOCKS AFTER HYGEINE.
[2019-07-21 19:38] VITALS: BP 118/80
--- NOTE | 2019-07-22 05:48 | NUR ---
ASSUMED CARES AT 1920. ALERT AND ORIENTED. PLEASANT. LEFT HEMIPARESIS. EXPRESSIVE APHASIA. DENIED ANY NEED FOR PAIN MEDS. ENCOURAGED HONEY THICK LIQUIDS. PT INCONTINENT OF URINE AT MIDNIGHT. UNABLE TO VOID AT 0530. BLADDER SCANNED SHOWED 450 CC. STRAIGHT CATHED WITH 400 CC OUTPUT. PT DID HAVE LIQUID STOOL INCONTINENCE X 2. THIS AM PT ALSO C/O STOMACH DISCOMFORT AFTER BM. CALL LIGHT IN REACH AND BED ALARM ON.
[2019-07-22 07:27] VITALS: BP 126/82
[2019-07-22 10:15] VITALS: BP 99/60
--- NOTE | 2019-07-22 11:29 | NUR ---
ASSUMED CARE AT 0730. ALERT ORIENTED PLEASANT COOPERATIVE. HX OF CVA L SIDE WEAKNESS. PT. WORKING WITH O.TAnnie THIS A.M. FOR ADLS. TRANSFERS WITH 2 ASSIST G BELT DUE TO L SIDE WEAKNESS FLACCIDITY UPPER EXTREMITY. PT. SITTING UP IN RECLINER AT BEDSIDE FEEDING SELF FLUIDS ENCOURAGED ON HONEY LIQUIDS. NEEDS ENCOURAGEMENT TO DRINK FLUIDS. DENIES PAIN TAKING MEDS WHOLE IN APPLESAUCE.
--- NOTE | 2019-07-22 11:36 | NUR ---
PT. WAS FOUND LYING ON L SIDE ON FLOOR AT 1015 HE HAD CALL LIGHT IN HIS HAND HAD BEEN IN RECLINER AFTER O.T. AND BREAKFAST. NO OPEN AREAS NOTED. HAD BEEN IN RECLINER AFTER O.T. AND BREAKFAST. PT. HAS FLACCID UPPER EXTREMITY AND WEAK LOWER EXTREMITY.
[2019-07-22 11:46] VITALS: BP 99/60
[2019-07-22 12:49] VITALS: BP 114/70
--- NOTE | 2019-07-22 17:08 | NUR ---
PT. HAS HAD NO SPONTANEOUS VOIDS SCAN [id number] SCAN AT 1430 REQUESTED URINAL AT 1620 NO VOID STRAIGHT CATH FOR 200 CCS JOANIE URINE AT 1640. IN RECLINER AT BEDSIDE ELEVATED FOOT REST CHAIR ALARM ON FOR PT. SAFETY.
[2019-07-22 19:00] VITALS: BP 112/70
--- NOTE | 2019-07-23 06:15 | NUR ---
ASSUMED CARE AT 1920. ALERT AND ORIENTED. PLEASANT. CONTINUES TO HAVE LOOSE COUGH. PER DR LARSEN, ENCOURAGE USE OF INCENTIVE SPIROMETRY AND ORDER FOR MUCINEX BID X 7 DAYS. PT TOOK PILLS WHOLE IN APPLESAUCE WITH HONEY THICK LIQUIDS. PUSHED FLUIDS. MELATONIN GIVEN BUT PT STILL RESTLESS MOST OF THE NIGHT. PT SQUIRMING IN BED AND PULLING OFF COVERS. WAS THEN REPOSITIONED AND TURNED THROUGHOUT THE NIGHT. AT 0600, PT HAD URINARY INCONTINENCE BUT STILL HAD PVR OF 400-500 CC. PT STRAIGHT CATHED AND HAD 400 CC OUT OF DARK YELLOW URINE. PT RESTING IN BED. CALL LIGHT IN REACH AND BED ALARM ON.
[2019-07-23 08:00] VITALS: BP 131/79
[2019-07-23 13:14] LABS: CREATININE 1.5 mg/dL (0.6-1.3); POTASSIUM 3.3 mmol/L (3.5-5.1)
--- NOTE | 2019-07-23 14:38 | NUR ---
NERISSA and Dr Read met with pt to review team conference summary and plan to reassess pt length of stay during team conference next Monday 07/30. Pt okay with plan. SW spoke with pt dtr Gabby to review summary and discuss planning and also left a message with pt dtr Alta; Gabby mentioned pt Amy would be visiting pt at hospital today around 3 pm and SW can discuss in more detail with pt . Also, pt phone number is [phone]. SW to continue to follow to assist with safe dc planning.
[2019-07-23 20:04] VITALS: BP 115/67
--- NOTE | 2019-07-23 20:05 | NUR ---
INCONTINENT OF URINE. BRYON CARE GIVEN. MOISTURE BARRIER APPLIED.ASSISTED WITH REPOSITIONING TO THE LEFT WITH ASSIST OF TWO. SLIGHT REDNESS ON BUTTOCKS NOTED. TOOK MEDICATIONS WHOLE ONE AT A TIME FOLLOWED WITH SIPS OF HONEY THICKENED APPLE JUICE. TAKES EXTRA TIME TO SWALLOW PILLS. CALL LIGHT WITHIN REACH. DENIES NEED FOR PAIN MEDICINE.
--- NOTE | 2019-07-24 06:06 | NUR ---
RESTED ON/OFF. COUGHED PERIODICALLY. COUGHS DECREASED AFTER ABOUT MIDNIGHT. ASSISTED WITH REPOSITIONING SIDE TO SIDE THROUGHOUT THE NIGHT. HOURLY ROUNDING IN PROGRESS.
[2019-07-24 08:30] VITALS: BP 103/67
--- NOTE | 2019-07-24 10:37 | NUR ---
ASSUMED PT CARE AT 0730, FULL ASSESMENT DONE CHARTED. PT A/O X4, UP WITH OT TO RECLINER THIS AM. ATE MOST OF BREAKFAST, POTASSIUM GIVEN IN THICKENED APPLEJUICE. PT TOELRATED WELL. PTS VSS, DENIES PAIN. CHIAR ALARM ON, PT APPEARS TIRED AFTER THERAPY THIS AM. WILL CONTINUE WITH PLAN OF CARE.
--- NOTE | 2019-07-24 18:37 | NUR ---
PT REMAINS FREE OF FALLS, PROGRESSING TOWARD GOALS. PT COULD NOT VOID THIS SHIFT, BLADDER SCAN SHOWED 660 1200, PT STRAIT CATHED WITH 600CC OUT. PT STILL UNABLE TO VOID THIS EVENING AND WAS BLADDER SCANNED WITH 70 CC IN BLADDER. PT PROVIDED WITH URINAL. PT USES CALL LIGHT APPROPRILATY FOR NEEDS. ATE APPROX 50% MEALS TODAY, ENCOURAGED GOOD FLUID INTAKE, REPLACED POTASSIUM PER PROTOCOL. PT UP WITH 2 ASSIST, FALL PREAUITONS IN PLACE. CALL LIGHT IN REACH. WILL CONTINUE TO MONITOR.
--- NOTE | 2019-07-24 19:15 | NUR ---
AWAKENED FOR HS REASSESSMENT AND VITAL SIGNS. DENIES DISCOMFORT. CALL LIGHT WITHIN REACH.
[2019-07-24 20:00] VITALS: BP 103/55
--- NOTE | 2019-07-25 05:42 | NUR ---
RESTED ON/OFF. GIVEN TYLENOL FOR MILD GENERALIZED DISCOMFORT WITH RELIEF. TAKES MEDICATIONS WHOLE ONE AT A TIME FOLLOWED WITH HONEY THICKENED LIQUIDS. ASSISTED WITH REPOSITIONING THROUGHOUT THE NIGHT. INCONTINENT OF URINE. BRYON CARE GIVEN. MOISTURE BARRIER APPLIED TO BUTTOCKS. HOURLY ROUNDING IN PROGRESS.
[2019-07-25 07:52] VITALS: BP 149/98
--- NOTE | 2019-07-25 18:19 | NUR ---
ASSUMMED CARE OF PT AT 0730, PT ALERT AND ORIENTED, FORGETFUL AT TIMES, TRANSFERS WITH ASSIST OF 2, GB AND CUEING, PT HAD SMALL INCONTINENT LIQUID BM THIS SHIFT, VOID PER URINAL X 1 AND INCONTINENT X 2, PT VOIDED 150CC AT 113O AND SCANNED FOR 294, PT INCONTINENT OF URINE IN BRIEF MID AFTERNOON, PT ATTEMPTED TO VOID PER URINAL AT 1730 BUT UNABLE SCANNED FOR 414CC AND ST CATHED FOR 385CC. PT UP IN CHAIR FOR MEALS, PARTICIPATED IN ALL THERAPIES, IN BED THIS PM AND TURNED ON SIDES, BUTTOCKS PINK BARRIER OINTMENT APPLIED,PT DENIES PAIN, NEEDS ENCOURAGEMENT TO TAKE THICKENED LIQUIDS, SLING TO LEFT ARM WHEN UP, WHEN PT IN CHAIR TENDS TO SCOOT FORWARD AND ALMOST SLIDES OUT OF RECLINER, PT RECLINED BACK WITH LEGS ELEVATED TO PREVENT HIM FROM MOVING FAR FORWARD, PT STATES HE DID NOT SLEEP WELL LAST NIGHT AND FEELS HE HAS BEEN SLEEPING TOO MUCH DURING DAY, PT REQUESTS TO BE UP IN CHAIR UNTIL BEDTIME IN HOPES HE WILL SLEEP BETTER TONIGHT. HOURLY ROUNDING COMPLETED, ASSESSMENT COMPLETE, WILL CONTINUE TO MONITOR.
[2019-07-25 19:55] VITALS: BP 138/86
--- NOTE | 2019-07-25 23:02 | NUR ---
BLADDER SCAN: PATIENT STATED NEEDED TO VOID. VOIDED 200 ML PER URINAL. BLADDER SCANNED, 377 ML OBTAINED. SKIN CARE DONE. MOISTURE BARRIER APPLIED.
--- NOTE | 2019-07-26 00:17 | NUR ---
ASSUMED CARE AT 1930. PATIENT RESTING IN RECLINER WITH LEGS ELEVATED. PATIENT RESTLESS. WANTED TO STAY UP UNTIL 1999, ASSISTED TO BED AT THAT TIME. UP WITH MAX ASSIST OF TWO PATIENT TRIED TO SIT BEFORE HE WAS AT THE BED. MUCH CUEING. GAIT BELT, WALKER. PATIENT ALTERNATES RESTLESSNESS WITH SLEEPING. HAD TO AWAKEN PATIENT TO GIVE HS MEDS, AND WAS FALLING ASLEEP DURING SKIN CARES. OTHERWISE RESTLESS IN BED DESPITE MELATONIN GIVEN, SEE MAR. C/O NEEDING TO HAVE BM, SOME CONTAINED IN BEDPAN. LOOSE BROWN STOOL. SKIN CARE GIVEN, MOISTURE BARRIER APPLIED. DID VOID PER URINAL, AFTERWARDS SCANNED AND 377 OBTAINED. HOURLY ROUNDS CONTINUE. BED ALARM ON. CALL LITE IN REACH.
--- NOTE | 2019-07-26 05:48 | NUR ---
HAS SLEPT AT TIMES VERY SOUNDLY ALTERNATING WITH RESTLESSNESS. INCONTINENT FOUR TIME TOTAL. AT 0445 WAS INCONTINENT OF LARGE AMOUNT URINE. BLADDER SCANNED--650 ML. STRAIGHT CATHED AT THAT TIME, OBTAINED 350 ML LT YELLOW URINE. TURNS SELF TO LT SIDE AT TIMES. HOURLY ROUNDS CONTINUE. BED ALARM ON. CALL LITE IN REACH.
[2019-07-26 08:00] VITALS: BP 159/96
[2019-07-26 11:00] VITALS: BP 108/72
--- NOTE | 2019-07-26 16:52 | NUR ---
ASSUMMED CARE OF PT AT 0730, PT ALERT, FORGETFUL, TRANSFERS WITH THE ASSIST OF 2, AND GB,STAND AND PIVOT, LEFT ARM FLACCID, SLING WHEN UP, ELEVATED ON PILLOW WHEN IN BED, LEFT LEG WEAK, PT APETITE IS DECREASED BUT DOES TAKE FLUIDS WHEN ENCOURAGED, PT HAD MODERATE LOOSE BM ON COMMODE THIS AM, NO URINE OUT AT THIS TIME, PT ATTEMPTED TO USE URINAL AT 1230 BUT UNABLE TO VOID, PT SCANNED FOR 513CC AND ST CATHED FOR 400CC OF CLEAR YELLOW URINE, PT DENIES PAIN, PT UP IN CHAIR MUCH OF SHIFT, CAHIR ALARM ON, PT SCOOTS HIMSELF DOWN IN CHAIR, SO LEGS OF RECLINER NEED TO BE ELEVATED, WAFFLE CUSHION IN CHAIR, REPOSTIONED EVERY 2 HOURS IN CHAIR AND BED, BUTTOCKS RED/RASHY, BARRIER OINTMENT APPLIED, FAMILY VISITING, PARTICIPATED IN THERAPIES, HOURLY ROUNDING COMPLETED, ASSESSMENT COMPLETE, WILL CONTINUE TO MONITOR.
[2019-07-26 19:00] VITALS: BP 137/82
--- NOTE | 2019-07-27 06:14 | NUR ---
ASSUMED CARES AT 1920. ALERT AND ORIENTED. PLEASANT. CVA WITH LEFT HEMIPARESIS, DYSPHAGIA, EXPRESSIVE APHASIA. DENIED ANY PAIN. TOOK PILLS WHOLE WITH PUDDING AND HONEY THICK LIQUIDS. MAX ASSIST X 2 PERSON. STAND AND PIVOT. AT MIDNIGHT, PT WAS STRAIGHT CATHED AND HAD 450 CC DARK YELLOW URINE OUTPUT. AT 0530, PT VOIDED 50 CC IN URINAL BUT ALSO HAD URINARY ACCIDENT IN BED. BLADDER SCAN ONLY SHOWED 145 CC. PT RESTLESS AT TIMES BUT SLEPT SOME. CALL LIGHT IN REACH AND BED ALARM ON.
[2019-07-27 07:40] VITALS: BP 139/81
--- NOTE | 2019-07-27 18:02 | NUR ---
ASSUMMED CARE OF PT AT 0730, PT ALERT, FORGETFUL CONFUSED AT TIMES, PT TRANSFERS WITH MAX ASSIST OF 2 WITH A STAND PIVOT, PT DENIES PAIN, PT HAS DECREASED APETITE, NEEDS ENCOURAGEMENT TO DRINK HIS THICKENED FLUIDS, PT UNABLE TO VOID THIS AM SCANNED FOR 480, DISCUSSED WITH PHYSICIAN AND ELIZONDO PLACED, AND UROLOGY CONSULT ORDERED, PT NEEDS FEREQUENT REMINDERS TO NOT TOUCH ELIZONDO TUBE, BUTTOCKS PINK, BARRIER OINTMENT APPLIED, REPOSTIONED EVERY 2 HOURS, WAFFLE CUSHION IN CHAIR, FAMILY VISITING THRU OUT CHIEFS GAME, PT HAS OCCASIONAL NON PRODUCTIVE COUGH, BED BATH GIVEN, PT NEEDED MAX ASSIST WITH BATHING AND DRESSING. ASSESSMENT COMPLETE, HOURLY ROUNDING COMPLETE, WILL CONTINUE TO MONITOR.
[2019-07-27 19:13] VITALS: BP 141/83
[2019-07-28] VITALS (7 sets, daily range): BP systolic 82–125; BP diastolic 42–85
--- NOTE | 2019-07-28 05:23 | NUR ---
ASSUMED CARE AT 1930. PATIENT RESTING IN BED. MOVES ABOUT IN BED MANY TIMES THROUGH NIGHT TAKING COVERS IN EVERY DIRECTION. ELIZONDO DRAINING DARK JOANIE URINE, HONEY THICKENED FLUIDS ENCOURAGED. TAKES PILLS WHOLE IN PUDDING OR APPLESAUCE. MELATONIN GIVEN AT HS. ALTERNATES SLEEPING WITH RESTLESSNESS THROUGH NIGHT. AROUND 0345 STARTED C/O RIGHT THIGH PAIN, BUT ALSO C/O PAIN IN LEFT LEG AND SOMETIMES PENIS. ELIZONDO PAINTED WITH BETADINE, ELIZONDO BALLOON DEFLATED, ADVANCED TO BIFURCATION OF CATH, BALLOON REINFLATED AND ALLOWED TO FLOAT TO FINAL POSITION. PATIENT DENIED PAIN WHEN THIS DONE. ELIZONDO DRAINING WELL, BLADDER SCANNED WITH 43 ML IN BLADDER. GIVEN APAP WITHOUT MUCH CHANGE. TRIED WARM BLANKET OVER RIGHT THIGH THAT WAS THE MOST COMMON AREA C/O PAIN. AROUND 0500 C/O SKIN BEING DRY, PATIENT HAS BEEN OBSERVED RUBBING IT MANY TIMES. LOTION APPLIED WITH IMMEDIATE RELIEF OBTAINED. STATLOCK THAT WAS ON RIGHT THIGH CHANGED TO LEFT THIGH AND PLACED A LITTLE MORE PROXIMAL TO BETTER PREVENT TORTION OF THE CATH. CURRENTLY RESTING QUIETLY. HOURLY ROUNDS CONTINUE. BED ALARM ON. CALL LITE IN REACH. HAS BEEN USING CALL LITE THIS SHIFT WELL.
--- NOTE | 2019-07-28 09:57 | NUR ---
ASSUMED CARE AT 0730. ALERT TO SELF THIS A.M. VERY SLEEPY BUT RESPONDS TO VOICE. ACCORDING TO TECHNICIAN SUBMARINE CABLE EQUIPMENT HE DIDNT SLEEP MUCH RESTLESS LAST NIGHT HAD MELATONIN FOR SLEEP HX OF CVA L SIDE WEAKNESS. PARTICIPATING WITH O.T. BEFORE BREAKFAST. FED SELF 50% OF MEAL DOES COUGH AT INTERVALS ON [facility] ALTERED CHOPPED DIET WITH HONEY THICK LIQUIDS. TAKES MEDS WHOLE IN APPLESAUCE ONE AT A TIME. SITTING UP IN RECLINER WITH FEET ELEVATED CHAIR ALARM IN PLACE. ELIZONDO PATENT WITH DARK JOANIE URINE TO DD BAG. BP WAS LOW THIS A.M. RECKECKED AT 0930 STILL LOW. WILL CHECK AGAIN IF REMAINS LOW. HE RECEIVES FLOMAX AT HS WHICH MAY AFFECT BP.
--- NOTE | 2019-07-28 10:20 | NUR ---
PT. IS TALKING TO STAFF NURSE BUT BP WAS LOW 85/55 P 82 O2 SAT 89%.
--- NOTE | 2019-07-28 12:13 | NUR ---
AT 1137 STAFF ENTERED ROOM PT. MORE AWAKE AND HAD MOVED THE FOOTREST DOWN TO FLOOR ON HIS RECLINER. ALSO MOVED TRASHCAN AWAY FROM RECLINER EDGE HE WAS SLID DOWN IN THE CHAIR. TRANSFERRED PT. TO W/C WITH G BELT AND 2 PERSON ASSIST. CHAIR ALARM ON FOR PT. SAFETY. NEEDS CUEING WITH TRANSFERS. TO FOR LUNCH WITH S.T. FOR VITAL STIM [place]. DAUGHTERS HERE CONCERNED RE PTS. PLANS AFTER REHAB. LAUNDRY MACHINE OPERATOR SPOKE WITH DAUGHTERS.
--- NOTE | 2019-07-28 13:38 | NUR ---
PTS. VS WERE CALLED TO DR. BARON MANUAL BP BOTH ARMS WERE TAKEN REQUESTED AT 1045. CONTINUE TO MONITOR CLOSELY. DENIES PAIN OR CONCERNS.
--- NOTE | 2019-07-28 15:53 | NUR ---
PTS. VISITING THIS AFTERNOON IN HIS ROOM. PT. AWAKENS BUT STILL SLEEPY THIS AFTERNOON. LIQUIDS ENCOURAGED AND TAKEN FAIR WITH MEALS AND OFFERED OFTEN POSSIBLE OUTPUT IS SMALL TODAY DARK JOANIE IN ELIZONDO DRAINAGE BAG.
[2019-07-28 15:59] LABS: HEMATOCRIT 34.6 % (42.0-52.0); HEMOGLOBIN 11.8 gm/dL (14.0-18.0); MCH 32.4 pg (26.0-34.0); MCV 95.4 fL (80.0-100.0); MPV 7.7 fl. (7.2-11.1); RBC 3.63 mil/uL (4.50-6.00); RDW-CV 16.2 % (10.5-14.5)
[2019-07-28 16:18] LABS: ALBUMIN 2.8 g/dL (3.4-5.0); CALCIUM 9.3 mg/dL (8.5-10.1); CREATININE 1.7 mg/dL (0.6-1.3); POTASSIUM 4.2 mmol/L (3.5-5.1); TOTAL BILIRUBIN 0.6 mg/dL (<0.1-1.0); TOTAL PROTEIN 6.5 g/dL (6.4-8.2)
--- NOTE | 2019-07-28 17:13 | NUR ---
SW met with pt dtrs to discuss dc planning and set up a time to meet in more detail with pt and dtrs again on Sunday at 4 pm. Pt dtrs are hopeful to find a facility for pt at dc, but pt dtr said that if there is not a placement available that is acceptable to them, then pt dtr would care for pt at home. SW to continue to follow to assist with safe dc planning.
--- NOTE | 2019-07-28 17:15 | NUR ---
PT. IS ALERT AND OEIENTED X 3 UP IN RECLINER FOR SUPPER MEAL. TOOK FLUIDS X 2.
--- NOTE | 2019-07-28 19:30 | NUR ---
AWAKENED FOR HS REASSESSMENT. ELIZONDO TO DEPENDENT DRAINAGE WITH DARK/YELLOW URINE. DENIES DISCOMFORT. CALL LIGHT WITHIN REACH.
--- NOTE | 2019-07-29 05:42 | NUR ---
RESTLESS UNTIL ABOUT MIDNIGHT THEN STARTED TO SLEEP BETTER. OCCASIONALLY HAD A NON PRODUCTIVE COUGH. PATIENT IS ON SCHEDULED MUCINEX. ASSISTED WITH REPOSITIONING. ALSO PATIENT TURNS SELF AT TIMES TO HIS LEFT AND SOMETIMES TURNS TO HIS BACK. TAKES SMALL PILLS WHOLE, BIG PILLS CUT IN HALF ONE AT A TIME WITH APPLESAUCE WITH EXTRA TIME FOLLOWED WITH HONEY THICKENED APPLE OR CRANBERRY JUICE. HAD 325ML OF JOANIE URINE OUT THIS SHIFT. HOURLY ROUNDING IN PROGRESS.
[2019-07-29 07:24] VITALS: BP 133/72
--- NOTE | 2019-07-29 10:57 | NUR ---
Nutrition: follow up note. Per RN, Dr Read wants a protein supplement ordered. I had Magic Cup ordered TID already, but apparently it is not coming up on trays. I reordered Magic Cup as well as Ensure pudding this morning for TID. Will follow up with kitchen to see why they weren't being delivered. Pt is on Honey thick liquids, which is why pudding and magic cup are supplement choices. Alb 2.8, prealb 17.5. Will continue to follow weekly. Mild risk.
[2019-07-29 13:19] LABS: URINE BLOOD 3+ (Negative); URINE CLARITY CLEAR; URINE COLOR YELLOW; URINE GLUCOSE-RANDOM NEGATIVE (Negative); URINE KETONES TRACE (Negative); URINE LEUKOCYTES 1+ (Negative); URINE NITRITE NEGATIVE (Negative); URINE PROTEIN 2+ (Negative); URINE SPECIFIC GRAVITY 1.025 (1.005-1.030)
[2019-07-29 13:20] LABS: ICTOTEST (BILI CONFIRMATORY) Positive (Negative); URINE BILIRUBIN 1+ (Negative)
[2019-07-29 13:27] LABS: BACTERIA 1-9 Few /HPF (None Seen); HYALINE CASTS >10 Many /LPF (None Seen); MUCUS 0-3 Light strn/LPF (None Seen); SQUAMOUS 0-3 Few /LPF (0-3); URINE WBC 6-15 Few /HPF (0-5)
[2019-07-29 13:28] LABS: CALCIUM OXALATE 0-3 Few /LPF (None Seen)
--- NOTE | 2019-07-29 17:40 | NUR ---
ASSUMMED CARE OF PT AT 0730, PT ALERT, FORGETFUL,CONFUSED, PT TRANSFERS WITH ASSIST OF 2 AND GB, APETITE DECREASED, NEEDS ENCOURAGEMENT TO TAKE HONEY THICK LIQUIDS, ELIZONDO PATENT AND DRAINING DARK JOANIE URINE, UA SENT TO LAB, PHYSICIAN NOTIFIED OF RESULTS, ORDERS OBTAINED, DR MACK REQUESTED THAT LINTER SAW SHARPENER BE CONSULTED TO INCREASE PT PROTEIN INTAKE, SUPPLEMENTS ORDERED, PT PINK ON BUTTOCKS, BARRIER OINTMENT APPLIED, REPOSTIONED EVERY 2 HOURS, WAFFLE CUSHION IN CHAIR, PT DENIES PAIN, PARTICIPATED IN THERAPIES, HOURLY ROUNDING COMPLETED, ASSESSMENT COMPLETE, WILL CONTINUE TO MONITOR.
[2019-07-29 19:30] VITALS: BP 119/80
--- NOTE | 2019-07-30 05:31 | NUR ---
ASSUMED PT CARE AT 1930. PT ALERT AND CONVERSATIONAL BUT CAN BE FORGETFUL AND CONFUSED. PT TRANSFERRED FROM RECLINER TO BED WITH MAX ASSIST OF 2, GAIT BELT AND STAND/PIVOT. ELIZONDO TO DD DRAINING DARK JOANIE URINE. WITH ENCOURAGEMENT PT DRANK TWO CONTAINERS OF HONEY THICKENED ICE TEA. LARGE, LIQUID STOOL X1. BARRIER CREAM TO BUTTOCKS. PT REPOSITIONED Q2 HOURS OVERNIGHT. PT DENIES PAIN. USES CALL LIGHT APPROPRIATELY. HOURLY ROUNDING IN PROGRESS, WILL CONTINUE TO MONITOR.
[2019-07-30 09:13] VITALS: BP 91/57
--- NOTE | 2019-07-30 16:05 | NUR ---
PT HAS PARTICIPATED WITH THERAPIES AND IS REPOSITIONED FREQUENTLY WHILE UP TO RECLINER. PT ALERT AND ABLE TO HOLD SIMPLE CONVERSATIONS. PT DENIES PAIN. ELIZONDO TO DD WITH CLEAR YELLOW URINE PRESENT AND IS OFFERED HONEY THICK LIQUIDS TO DRINK. PT TRANSFERRS WITH ASSIST OF 2 WITH GAITBELT. PT FEEDS SELF AND EATS IN DINNINGROOM WITH SUPERVISION.
--- NOTE | 2019-07-30 17:50 | NUR ---
NERISSA and Dr Read reviewed team conference summary with pt and plan for pt to try to transition to SNF [facility]. NERISSA met with pt family later in the afternoon and informed of team conference summary/dc planning. SW faxed referral to [facility] for SNF and SW faxed update for review to pt insurance. [facility] to evaluate pt tomorrow and determine if they would be able to accept pt for SNF or not. Pt family expressed desire to be able for pt to dc home and pt family wants to be able to provide care for pt. Pt dtrs to complete family training and possible for pt to dc home with family care on Sunday if not SNF on or [facility] for a while depending on acceptance and insurance auth and pt/family final decision of dc plan. SW to continue to follow to assist with finalization of dc plan.
[2019-07-30 20:00] VITALS: BP 133/70
--- NOTE | 2019-07-31 05:17 | NUR ---
ASSUMED PT CARE AT 1930. PT ALREADY IN BED AT SHIFT CHANGE. PT SLEEPY TONIGHT BUT ANSWERS QUESTIONS APPROPRIATELY. ELIZONDO TO DD DRAINING JOANIE URINE. PT TOOK PILLS WHOLE IN PUDDING FOLLOWED BY HONEY THICK ICE TEA. PT REPOSITIONED Q2 OVERNIGHT. BARRIER CREAM TO BUTTOCKS. PT DENIES PAIN. USES CALL LIGHT APPROPRIATELY. BED ALARM ON FOR SAFETY. HOURLY ROUNDING IN PROGRESS, WILL CONTINUE TO MONITOR.
[2019-07-31 07:20] VITALS: BP 130/89
--- NOTE | 2019-07-31 16:49 | CON ---
[address] [address] CONSULTATION Name: HOOD SANDS Room: [address] IN M.R.#: [id number] Admission: 07/08/19 Attend Phys: Ronny Read MD Discharge: Date of : 11/08/[birth year] Report #: [id number] THIS REPORT FOR: //name// CC: [facility] Fatoumata Read DATE OF SERVICE: 07/27/2019 REASON FOR CONSULTATION: Urinary retention. HISTORY OF PRESENT ILLNESS: The patient is an 88-year-old male, who is currently in [facility] after having a stroke. Over the last couple of days, he has required straight catheterization for elevated residuals and finally yesterday, he was unable to void at all and Bergeron was placed. The patient denies prior urinary retention or difficulty urinating. I did note he is on Flomax as an inpatient, unclear if he was on this at home. He does have a history of prostate cancer status post brachytherapy many years ago. He denies hematuria or other procedures. PAST MEDICAL HISTORY: Includes prostate cancer status post brachytherapy years ago, stroke, heart disease, hypertension, vascular disease. SOCIAL HISTORY: The patient is a nonsmoker and denies alcohol use. He lives with his spouse. MEDICATIONS: Reviewed. Please see inpatient medical record. ALLERGIES: None. REVIEW OF SYSTEMS: A 12-point review of systems is negative except as noted above in HPI. PHYSICAL EXAMINATION: VITAL SIGNS: Temperature is 36.7, pulse 85, respirations 17, blood pressure of 139/81. He is 94% on room air. GENERAL: He is a well-developed, well-nourished elderly white male in no acute distress. He is alert and oriented x 3. HEENT: Normocephalic, atraumatic. He does have a slight facial droop on the left side. HEART: Regular rate and rhythm. LUNGS: Clear. ABDOMEN: Soft, nontender, nondistended. GENITOURINARY: He has normal phallus and testes. Bergeron is in place with urine clear in the Bergeron bag. EXTREMITIES: [place] [address] CONSULTATION Name: [facility] Room: [address] IN [facility]#: [id number] Admission: 07/08/19 Attend Phys: Ronny Read MD Discharge: Date of : [birth year] Report #: [id number] LABORATORY DATA: His BUN and creatinine are 15 and 1.5 back on 07/23/2019. This appears to be close to his baseline. Urinalysis on 07/17/2019, culture showed mixed normal lety. Renal ultrasound on 07/17/2019 showed no hydronephrosis and simple right renal cyst. ASSESSMENT: 1. Prostate cancer status post brachytherapy years ago. 2. Urinary retention. Recommend Bergeron catheter for at least the next 5-7 days or until he is more recovered and more ambulatory. Continue Flomax. Avoid constipation. If he is still in rehabilitation, please contact Urology a week from now and we can attempt a voiding trial. Otherwise, he can go home with his Bergeron if he leaves sooner and follow up with me in clinic for a voiding trial. <ELECTRONICALLY SIGNED> By: Laura Richmond MD 07/31/19 [id number] Richmond MD /nt
[2019-07-31 19:40] VITALS: BP 132/82
--- NOTE | 2019-08-01 05:51 | NUR ---
ASSUMED CARE OF PATIENT AT 1925. SLEEPING IN BED. PAIN MEDICINE GIVEN FOR COMPLAINT OF HEADACHE WITH RELIEF. ELIZONDO TO DEPENDENT DRAINAGE WITH JOANIE URINE. TOOK MEDICATION WHOLE ONE AT A TIME WITH APPLESAUCE WITH EXTRA TIME FOLLOWED WITH HONEY THICKENED CRANBERRY JUICE. HOURLY ROUNDING IN PROGRESS.
[2019-08-01 07:28] VITALS: BP 134/91
--- NOTE | 2019-08-01 14:41 | NUR ---
NERISSA met with pt family in regards to safe dc planning; SW also spoke with Dr Read and team to discuss change in family's decision to pursue SNF; now family preference is to be able to have pt dc home with family care and HH follow up services. NERISSA discussed in more detail with family and schedule family training starting on Sunday at 7:30 am. Pt family in agreement with plan. SW discussed DME needs and faxed referral/orders for DME: hospital bed, bedside commode, wheelchair to [facility]. SW to continue to follow to assist with safe dc planning; plan for pt to dc home with family care on Sunday after family training completed and HH and DME arranged.
[2019-08-01 20:00] VITALS: BP 116/71
--- NOTE | 2019-08-01 21:07 | NUR ---
ALERT TO SELF WITH PERIODS OF FORGETFULNESS AND CONFUSION. DENIES PAIN. TRANSFERS WITH MAX ASSIST OF 2 AND GAIT BELT. HAS LEFT SIDED WEAKNESS WITH LEFT ARM FLACCID. MOISTURE BARRIER APPLIED TO BUTTOCK. CONTINUES ON HONEY THICKEN LIQUIDS AND CHOPPED DIET. URINE DARK JOANIE IN COLOR AND OUTPUT LOW IN ELIZONDO CATHETER. WILL LEAVE MESSAGE FOR DR. FLUIDS ENCOURAGED. PILLS TAKEN WHOLE IN APPLESAUCE WITHOUT DIFFICULTY.
--- NOTE | 2019-08-02 02:09 | NUR ---
ASSUMED CARE AT 1930. PATIENT RESTING IN BED SLEEPING. AWAKENED FOR ASSESSMENT AND MEDS. TAKES MEDS WHOLE IN APPLESAUCE. ENCOURAGED HONEY THICKENED CRANBERRY JUICE. DAY SHIFT NURSE REPORTED DECREASED URINE OUTPUT. PHYSICIAN ORDERED ELIZONDO TO BE FLUSHED AND IVF. ELIZONDO FLUSHED WITH 60 ML STERILE WATER, WITH IMMEDIATE RETURN OF IRRIGANT. BLADDER SCAN SHOWED 0 ML FOUR TIMES FOR VERIFICATION. IV STARTED PER NURSING ICE PULLER TO RT FOREARM AT 0050. IVF OF NS AT 250 ML FOR ONE LITER ORDERED. TOLERATING WELL. ASSISTED WITH TURNS. PATIENT CHANGES HIS OWN POSITIONS OFTEN. MOISTURE BARRIER TO BUTTOCKS. PANTS REMOVED AT HS TO ALLOW AIR TO REGION. DYSARTHRIA NOTED, BUT ABLE TO MAKE NEEDS KNOWN. LT SIDE WEAK, HOB ELEVATED WITH MEDS OR PO FLUIDS THEN RETURNED TO LOWER POSITION TO OFFLOAD PRESSURE TO BUTTOCKS. HEELS OFFLOADED, BUT PATIENT REMOVES PILLOWS SHORTLY AFTER THEY ARE PLACED. HOURLY ROUNDS CONTINUE. BED ALARM ON. CALL LITE IN REACH.
--- NOTE | 2019-08-02 05:14 | NUR ---
SLEPT MOST OF THE NIGHT. SLEPT THROUGH CATH CARE. 1000 NS BOLUS (250/HR) COMPLETE. URINE STILL CONCENTRATED, BUT IVF JUST GOT DONE. NO C/O PAIN. HOURLY ROUNDS CONTINUE. BED ALARM ON. CALL LITE IN REACH.
--- NOTE | 2019-08-02 05:25 | NUR ---
BLADDER SCANNED WITH ELIZONDO PRESENT. 0 ML OBTAINED REPEATEDLY. THERE IS URINE DRAINING, BUT IT REMAINS CONCENTRATED. WILL CONTINUE TO OBSERVE URINE OUTPUT.
--- NOTE | 2019-08-02 06:38 | NUR ---
U/O WAS 300 ML, BUT URINE IS FORM PRESSER IN THE TUBING COMPARED TO WHAT IS IN THE BAG. IVF FINISHED AROUND 0500. HOURLY ROUNDS CONTINUE.
[2019-08-02 08:00] VITALS: BP 124/68
[2019-08-02 20:00] VITALS: BP 131/79
--- NOTE | 2019-08-03 05:09 | NUR ---
ASSUMED PT CARE AT 1930. PT SLEEPING BUT WAKES WITH CARES. ALERT AND ORIENTED, POLITE AND COOPERATIVE WITH CARES. ELIZONDO TO DD DRAINING DARK YELLOW URINE. PT TURNED Q2, PT CAN ALSO ASSIST WITH TURNS. LEFT ARM REMAINS FLACCID. PT TAKES PILLS WHOLE IN PUDDING. HONEY THICKENED LIQUIDS ENCOURAGED. PT SLEPT WELL OVERNIGHT. USES CALL LIGHT APPROPRIATELY. BED ALARM ON FOR SAFETY. HOURLY ROUNDING IN PROGRESS, WILL CONTINUE TO MONITOR.
[2019-08-03 08:30] VITALS: BP 167/81
--- NOTE | 2019-08-03 16:03 | NUR ---
ALERT WITH PERIODS OF CONFUSION. TRANSFERS WITH ASSIST X2 AND GAIT BELT. HAS LEFT SIDED WEAKNESS WITH LEFT ARM FLACCID. HAS SALINE LOCKED IV IN LEFT LOWER ARM. DENIES PAIN WHEN ASKED. HAS ELIZONDO CATHETER PATENT WITH CLEAR YELLOW URINE. ABLE TO FEED SELF MINIMAL ASSIST/SET UP HELP WITH MEAL TRAY. ON HONEY THICKEN LIQUIDS AND CHOPPED FOOD. PROGRESSING TOWARD DISCHARGE GOAL. CALL LIGHT WITHIN REACH.
[2019-08-03 20:00] VITALS: BP 119/78
[2019-08-04 00:46] LABS: ABSOLUTE EOSINOPHILS 0.3 thou/uL (0.0-0.7); ABSOLUTE LYMPHOCYTES 1.3 thou/uL (0.8-5.3); ABSOLUTE MONOCYTES 0.5 thou/uL (0.0-1.2); ABSOLUTE NEUTROPHILS 3.2 thou/uL (1.6-8.1); BASOPHILS 0.8 %; EOSINOPHILS 5.5 %; HEMATOCRIT 34.5 % (42.0-52.0); HEMOGLOBIN 11.6 gm/dL (14.0-18.0); LYMPHOCYTES 23.3 %; MCH 31.9 pg (26.0-34.0); MCHC 33.7 g/dL (28.0-37.0); MCV 94.5 fL (80.0-100.0); MONOCYTES 10.1 %; NUCLEATED RBCS 0 /100WBC; PLATELET COUNT* 201 thou/uL (150-400); POLYS 60.3 %; RBC 3.65 mil/uL (4.50-6.00); RDW-CV 15.7 % (10.5-14.5); WBC 5.4 thou/uL (4.0-11.0)
[2019-08-04 00:50] LABS: CALCIUM 9.7 mg/dL (8.5-10.1); CREATININE 1.5 mg/dL (0.6-1.3)
[2019-08-04 00:55] LABS: ALBUMIN 2.7 g/dL (3.4-5.0); TOTAL BILIRUBIN 0.3 mg/dL (<0.1-1.0); TOTAL PROTEIN 6.5 g/dL (6.4-8.2)
--- NOTE | 2019-08-04 06:22 | NUR ---
ASSUMED PT CARE AT 1930. PT ALERT AND ORIENTED, POLITE AND COOPERATIVE WITH CARES. PT ALREADY IN BED AT SHIFT CHANGE. PT TAKES PILLS WHOLE IN APPLESAUCE FOLLOWED BY HONEY THICKENED LIQUIDS. PT HAS ELIZONDO TO DD, DRAINING DARK YELLOW URINE. NO STOOL THIS SHIFT. PT HAD NOSEBLEED LASTING FROM APPROXIMATELY 2345 UNTIL 0300. RAPID RESPONSE PROTOCOL INITIATED, CXR, LABS AND VS TAKEN. PT DISTRESSED, ASKING IF HE WAS GOING TO . AFTERWARD PT SLEPT FITFULLY THEN THIS MORNING PT DETERMINED HE IS GOING TO LEAVE THE HOSPITAL. PT TURNED WHEN POSSIBLE OVERNIGHT. BED ALARM ON FOR SAFETY. HOURLY ROUNDING IN PROGRESS.
[2019-08-04 08:15] VITALS: BP 137/77
--- NOTE | 2019-08-04 15:30 | NUR ---
SW met with pt family yesterday after family training and more family training planned for tomorrow as well. Pt family insistent that they are going to care for pt at home; pt family refusing any SNF or LTC options despite team suggestions for pt/family needs. SW followed up with pt family regarding DME and confirmed DME order for hospital bed, wc, bsc, wallace lift. SW called and confirmed with [facility] as well; pt wc to be delivered to pt hospital room and other DME to be arranged to be delivered to pt home. SW to continue to follow to assist with finalization of dc plan and HH services.
--- NOTE | 2019-08-04 15:34 | NUR ---
ASSUMED CARE AT 0730. ALERT ORIENTED TO SELF AND PLACE. HX OF CVA L SIDE WEAKNESS. TRANSFERS WITH 2 ASSIST G BELT FROM RECLINER TO W/C PT. IS A PUSHER IF TRANSFERRING TO RT. ABLE TO WIGGLE ABOUT IN W/C AND RECLINER AND SLIDES DOWN IN CHAIRS. INSTRUCTED TO PLEASE KEEP LEGS UP IN RECLINER TENDS TO GET L LEG OVER EDGE OF RECLINER LEGREST LEANS LEFT IN CHAIR ALSO. FAMILY MEMBERS HERE AT 0730 FOR FAMILY TRAINING WITH PIngrid. PARTICIPATING IN THERAPIES BUT TIRED THIS A.M. DUE TO ROUGH NIGHT. ELIZONDO PATENT WITH JOANIE URINE TO DD BAG. REFUSED BREAKFAST BUT ATE SOME LUNCH HONEY THICK LIQUIDS MEDS WHOLE IN APPLESAUCE.
[2019-08-04 19:30] VITALS: BP 102/59
--- NOTE | 2019-08-05 05:20 | NUR ---
ASSUMED PT CARE AT 1930. PT ALREADY IN BED SLEEPING AT SHIFT CHANGE. AWAKENS FOR CARES. PT TAKES PILLS WHOLE IN APPLESAUCE FOLLOWED BY HONEY THICK LIQUIDS. PT SLEPT WELL OVERNIGHT. DENIES PAIN. TWO LARGE INCONTINENT STOOLS. ELIZONDO TO DD, DRAINING JOANIE URINE. HOURLY ROUNDING IN PROGRESS, WILL CONTINUE TO MONITOR.
[2019-08-05 08:07] VITALS: BP 97/52
[2019-08-05 08:30] VITALS: BP 97/52
--- NOTE | 2019-08-05 17:20 | NUR ---
TRANSFERS WITH 2 ASSIST AND GAIT BELT. HAS LEFT SIDED WEAKNESS WITH LEFT ARM BEING FLACCID. ALERT WITH PERIODS OF FORGETFULNESS AND CONFUSION. INCONTINENT OF BOWELS THIS AM X2. DID ASK TO USE THE COMMODE AND WAS CONTINENT OF BOWELS X1. ELIZONDO CATHETER D/C AND PATIENT HAS NOT VOIDED YET. BLADDER SCAN AT 1645 SHOWED 164ML IN BLADDER. WILL CONTINUE TO MONITOR. PATIENT PARTICIPATED WITH THERAPIES TODAY. ON HONEY THICKEN LIQUIDS. FLUIDS ENCOURAGED. SON IN LAW HERE AND DID TRANSFER PATIENT WITH SOME OTHER ASSIST. CALL LIGHT WITHIN REACH.
--- NOTE | 2019-08-05 19:32 | NUR ---
PATIENT BLADDER SCANNED AGAIN AT 1800 AND HAD 182ML IN BLADDER. WILL CONTINUE TO MONITOR.
--- NOTE | 2019-08-05 20:00 | NUR ---
CALLED AT SHIFT CHANGE TO USE THE URINAL. UNABLE TO VOID. BRYON CARE GIVEN AND REPOSITIONED. CALL LIGHT WITHIN REACH. TOOK MEDICATION WHOLE WITH APPLESAUCE FOLLOWED WITH HONEY THICKENED APPLE JUICE. DENIES DISCOMFORT.
[2019-08-05 21:47] VITALS: BP 127/67
--- NOTE | 2019-08-06 05:55 | NUR ---
RESTED ON/OFF. RESTLESS AT TIMES. NON PRODUCTIVE COUGH PERIODICALLY. INCONTINENT OF URINE X ONE. BRYON CARE GIVEN. BLADDER SCAN AFTER INCONTINENCE SHOWED 182ML. UNABLE TO VOID THIS MORNING. BLADDER SCAN SHOWED 356ML. STRAIGHT CATH DONE AND 275ML OF BLOODY URINE OBTAINED. ASSISTED WITH REPOSITIONING. HOURLY ROUNDING IN PROGRESS.
[2019-08-06 08:00] VITALS: BP 111/71
[2019-08-06 09:00] VITALS: BP 111/71
[2019-08-06 10:30] VITALS: BP 117/71
[2019-08-06 11:11] VITALS: BP 117/71
[2019-08-06 13:59] VITALS: BP 117/71
[2019-08-06] MEDS ORDERED: FLOMAX0.4 MG PO (14:07)
[2019-08-06 15:34] VITALS: BP 117/71
--- NOTE | 2019-08-06 15:36 | NUR ---
Team conference held today; NERISSA and Dr Read met with pt and pt dtr Alta to review team conference summary and team's recommendations for completion of family training with OT and with nursing (PT family training occurred). 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 Dr Read explained that would be okay but that pt family should work with OT to which pt family agreed. Later, pt dtr agreed that she would work with nursing and training on straight cath after all. PT worked with pt dtr and [facility] lift transfers as well. Pt family arranged for a medical transport to provide pt ride home. [facility] [place] already provided wc, and are delivering hospital bed, bsc, and lift device to pt home. Pt family will be with pt at all times providing assistance and supervision as needed. services to follow and arranged with [facility]; NERISSA faxed referral and orders to HH. [phone]
--- NOTE | 2019-08-06 18:20 | NUR ---
PATIENT USED CALL POLANCO THIS AM AT 10:00AM. UPON ENTERING ROOM PATIENT WAS FOUND TO HAVE LEFT LEG OVER SIDE OF FOOT REST OF RECLINER. WHEN ASKING WHAT HE WAS DOING HE SAID HE WAS GETTING UP TO GET A SANDWICH. I TOLD HIM I WOULD GET HIM SOMETHING TO EAT AND HE SAID HE WAS NOT HUNGRY AND DID NOT WANT ANYTHING. AT 10:15 THERAPY WENT INTO ROOM AND FOUND PATIENT WITH LEFT LEG OFF OF FOOT REST AGAIN AND PUT IT BACK ON FOOT REST. AT 10:20 MONITORING AND EVALUATION ADVISOR FOUND PATIENT ON FLOOR BESIDE RECLINER. HE SAID HE BUMPED TOP OF HEAD ON TRASH CAN BUT HAD NO C/O ANY PAIN ANY WHERE. SKIN CHECK DONE WITH NO INJURIES NOTED. PATIENT ABLE TO STAND WITH THERAPIES WITHOUT ANY INCREASE IN DIFFICULTY OR PAIN. DR LOWE AND FAMILY (ISABELLE) NOTIFIED OF FALL. TRACI. PATIENT WAS PUT BACK IN RECLINER WITH CHAIR ALARM ON.
--- NOTE | 2019-08-06 18:26 | NUR ---
FAMILY INSISTING ON TAKING PATIENT HOME TODAY. PATIENT BLADDER SCANNED AT 1130 WITH 126ML NOTED IN BLADDER. PATIENT BLADDER SCANNED AGAIN ABOUT 1500 WITH 219ML NOTED IN BLADDER. PATIENT WAS STRAIGHT CATH PRIOR TO DISCHARGE TO DEMONSTRATE AND INSTRUCT ON STERILE TECHNIQUE OF DOING STRAIGHT CATHS. WITH DAUGHTER ISABELLE WHO WAS A NURSE AND SAID SHE HAS DO IT IN THE PAST. SHE SAID SHE HAD NOT QUESTIONS AFTER DEMONSTRATION. DISCHARGE INSTRUCTIONS GIVEN WT NO QUESTIONS. FAMILY (ISABELLE,DALLIN AND SON-IN-LAW) WERE NOTIFED OF PATIENT'S HIGH FALL RISK AND THAT HE WAS RESTLESS IN THE CHAIR TODAY AND SLID OUT OF RECLINER TO FLOOR WITHOUT INJURY. THEY HAVE BEEN INSTRUCTED ON RYAN LIFTS. THEY WERE INSTRUCTED TO CALL DR IF URINE OUTPUT WAS 300ML OR LESS IN 12 HOURS. THEY WERE INSTRUCTED TO MONITOR B/P AND NOTIFIED DR IF IT WAS LOW. THEY WERE ALSO INSTRUCTED PATIENT NEEDED TO BE REPOSITIONED AT LEAST EVERY 2 HOURS TO PREVENT SORES. FAMILY HAS ALSO BEEN INSTRUCTED ON THICKEN LIQUIDS. PATIENT VIA W/C VAN.
== END 2019-08-06 18:15 | disposition home health service (06) | DRG 56 ==
LOC: M.REH 14:02
PROVIDERS: Family Medicine; Internal Medicine; ADMIT Physical Medicine & Rehabilitation
DX: I69.354 Hemiplegia and hemiparesis following cerebral infarction affecting left non-dominant side (principal); I63.9 Cerebral infarction, unspecified; N17.9 Acute kidney failure, unspecified; I65.22 Occlusion and stenosis of left carotid artery; N40.1 Benign prostatic hyperplasia with lower urinary tract symptoms; G51.0 Bell's palsy; F03.90 Unspecified dementia, unspecified severity, without behavioral disturbance, psychotic disturbance, mood disturbance, and anxiety; E78.5 Hyperlipidemia, unspecified; E03.9 Hypothyroidism, unspecified; E87.6 Hypokalemia; I12.9 Hypertensive chronic kidney disease with stage 1 through stage 4 chronic kidney disease, or unspecified chronic kidney disease; N18.3 Chronic kidney disease, stage 3 (moderate); R33.8 Other retention of urine; R13.10 Dysphagia, unspecified; R53.81 Other malaise; Z85.46 Personal history of malignant neoplasm of prostate; Z86.73 Personal history of transient ischemic attack (TIA), and cerebral infarction without residual deficits; Z91.81 History of falling; Z79.899 Other long term (current) drug therapy; Z79.82 Long term (current) use of aspirin